=== PATIENT | female | born 1990 | race Caucasian/White ===

== ENCOUNTER 2024-05-02 13:02 | Outpatient (AMB) | payer BC, SELFPAY ==
[2024-05-02 13:11] VITALS: BP 123/74; PULSE 107; RESP 20; TEMP 36.2; O2SAT 97; BMI 33.3
--- NOTE | 2024-05-02 13:11 | OBCLNT_ITS ---
Vital Signs 05/02/24 13:11 Height 1.5 m Height Method Stated Weight 74.843 kg Weight Measurement Method Standing Scale BMI 33.3 BP 123/74 Blood Pressure Source Automatic Cuff Blood Pressure Location Left Upper Arm Position Left Lateral Respiration 20 Pulse 107 H Pulse Source Monitor Temp 97.1 F Temp Source Oral Pulse Oximetry (%) 97 Oxygen Delivery Method Room Air Allergies/Home Meds Allergies & Medications Allergies No Known Allergies Allergy (Verified 05/02/24 13:19) Medication Reconciliation acetaminophen 325 mg tablet (Tylenol) 325 mg PO QID PRN 05/02/24 [History Confirmed 05/02/24] aspirin 81 mg tablet,delayed release 81 mg PO QDAY 05/02/24 [History Confirmed 05/02/24] vits 75-iron 28 mg-folic acid 800 mcg-omega-3 oral combo pack (One A Day Women's DHA) pkg PO 05/02/24 [History Confirmed 05/02/24] Intake Visit Data Collection New Patient or Established: New Patient (never been to [facility]) Reason for Visit:: care Seen by Clinical Staff ONLY (RN/MA): No Transmission Repairer Required: No Do You Feel Safe at Home: Yes Authorities Contacted: N/A PCP or OBGYN visit in last 3 months: Yes Hx Now: Yes Are you currently on any form of Control: No Last menstrual period: 11/03/23 Pain Present Currently: No Pain Scale Used: Barbosa-Lopez/Numerical Pain scale:: 0 Smoking Status Smoking Status: Current some day smoker Cessation Counseling Provided: CYN was advised that quitting smoking is the single most important factor to protect the health of themselves and their family. Discussed the benefits of quitting smoking with patient. Encouraged patient to quit smoking and provided Cessation assistance materials and resources. Tobacco Use: Cigarette Years smoked: 20 Are you interested in Quitting?: No Would you like additional Smoking Cessation Counseling?: No Questionnaires Covid-19 Vaccine Questionnaire Has patient been vacinated for Covid-19 Have you been vacinated for Covid-19: No PHQ-9 PHQ-2 Over the last 2 weeks, how often have you been bothered by any of the following problems? 1. Little interest or pleasure in doing things: not at all 2. Feeling down, depressed, or hopeless: not at all Total score: 0 PHQ-9 3. Trouble falling or staying asleep, or sleeping too much: Not at all 4. Feeling tired or having little energy: Not at all 5. Poor appetite or overeating: Not at all 6. Feeling bad about yourself - or that you are a failure or have let yourself or your family down: Not at all 7. Trouble concentrating on things, such as reading the newspaper or watching television: Not at all 8. Moving or speaking so slowly that other people could have noticed? - Or the opposite - being so fidgety or restless that you have been moving around a lot more than usual: not at all 9. Thoughts that you would be better off or of hurting yourself in some way: Not at all Total score: 0 Source: Developed by Drs. Akin Mueller, Radha Pham, João Ventura and colleagues, with an educational karri from [employer]. 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 [employer] Tobacco History Smoking Status: Current some day smoker Packs per Day: 1.5 tobacco type: cigarettes Second Hand Smoke Exposure: Yes Alcohol History Alcohol Intake: Former Alcohol Intake Frequency: holidays/special occasions only Substance Use History Substance Use: none Domestic Abuse History Do You Feel Safe at Home: Yes Past Medical History Past Medical History Have you ever been diagnosed with any of the following: Cardiology Problems Cardiac Arrhythmia: No Heart Murmur: No Hypercholesterolemia: No Deep Vein Thrombosis: No Hypertension: No Respiratory Problems Asthma: No Sleep Apnea: No Wheezing: No Smoking: Yes Smoking Cessation Counseling: No Smoking Exposure: Yes Tobacco Use: Yes Stomache/Intestinal Problems Celiac Disease: No Gall Bladder Disease: No Colitis: No Irritable Bowel: No Hemorrhoids: No Gastroesophageal Reflux Disease: No Genital/Urinary Problems Kidney Stones: No Reproductive Problems Breast Cancer: No Endometriosis: No Fibroids: No Genital Herpes: No Gonorrhea: No Pelvic Inflammatory Disease: No Polycystic Ovarian Syndrome: No Previous Pregnancies: Yes (CS X 3 ETOP x 1) Syphilis: No Musculoskeletal Problems Arthritis: No Rheumatoid Arthritis: No Endocrine Problems Diabetes Mellitus Type 2: No Hyperthyroidism: No Hypothyroidism: No Systemic Lupus Erythematosus: No Blood Problems Anemia: No Psychologic Problems Recreational Drug Use: No Depression: No Anxiety: No Other Problems Hospitalization: Yes (Childbirth x 3) Autoimmune Disease: No Blood Transfusions: No Surgical History Angioplasty: No Appendectomy: No Bariatric Surgery: No Breast Surgery: No Cholecystectomy: No Additional Surgical History: LEEP, CS x3, ETOP, Possible cryo History of Present Illness HPI Narrative Pt is a 33 [id number] hx CS x 3 for OB transfer. Pt is 25-26 weeks and was seeing a CERTIFICATION OFFICER in [place] for PNC visits. She needs a colpo and LEEP post for an ASC_H pap in 01/2024 that has not been worked up yet. OB Initial Visit Menstrual History Menstrual reliability: definite Flow: normal Menstrual regularity: regular Monthly: Yes Age at menarche: 10 On control pills at conception: No Date of positive home test: 12/09/23 Associated symptoms (LMP): Denies amenorrhea, nausea, vomiting, fatigue, breast tenderness, urinary frequency, irritability, bloating or other OB History : 5 Para: 3 Hx # Pregnancies: 0 Hx Total # of Abortions (Spontaneous & Elective): 1 # of Living Children: 3 Delivery History 1st : Child's name: TORSTEN date: 06/03/10 sex: female Gestational age at delivery (weeks): 39 Delivery type: History of depression before or after : No 2nd : Child's name: BERTRAND date: 12/04/11 sex: female Gestational age at delivery (weeks): 39 Delivery type: History of depression before or after : No 3rd : Child's name: MAY date: 08/03/22 sex: female Gestational age at delivery (weeks): 25 Delivery type: History of depression before or after : No Infection History & Risk Evaluation History of STDs: HPV (ASC-H pap in 01/26 has not been worked up yet) HIV risk evaluation: low risk Hepatitis B risk evaluation: low risk Patient or partner has history of Genital Herpes: No Varicella/chicken pox status: immunized Genetic Screening & History Genetic Screening/Teratology Counseling - Includes patient, baby's father, or a nyone in either family with: 1. Patient's age 35 years or older as of estimated date of delivery: No 2. Thalassemia (German, Danish, Mediterranean, or Background); MCV less than 80: No 3. Neural Tube Defect (Meningomyelocele, Spina Bifida, or Anencephaly): No 4. Congenital Heart Defect: No 5. Down Syndrome: No 6. Kade-Sachs (Ashkenazi Yarsani, Cajun, [place]): No 7. Kisha Disease (Ashkenazi Yarsani): No 8. Familial Dysautonomia (Ashkenazi Yarsani): No 9. Sickle Cell Disease or Trait (): No 10. Hemophilia or other blood disorders: No 11. Muscular Dystrophy: No 12. Cystic Fibrosis: No 13. Dillon's Chorea: No 14. Mental Retardation/Autism: No 15. Other inherited genetic or chromosomal disorder: No 16. Maternal Metabolic Disorder (EG,TYPE 1 Diabetes, PKU): No 17. Patient or baby's father had a child with defects not listed above: No 18. Recurrent loss or a stillbirth: No 19. Medications (including supplements, vitamins, herbs or otc drugs)/illicit/recreational drugs/alcohol since last menstrual period: No 20. Any other: No Infection History 1. Live with someone with TB or exposed to TB: No 2. Rash or viral illness since last menstrual period: No 3. Hepatitis B,C: No Other (see comments) Source: [employer] OB Flowsheet OB Flowsheet Initial Weight: Not Recorded Date -?-?-?-?-?-?-?-?-?-?-?-?- EGA Weight Edema CTX Effacement BP Fundal ht Pres Dilation Effacement Station Visit Note Alb Glu FHR Mov 05/02/24 -?-?-?-?-?-?-?-?-?-?-?-?- 25w 6d 74.843 kg 123/74 150 active Review of Systems Review of Systems Narrative Review of Systems: Some nausea and fatigue Systems Reviewed: All systems reviewed, normal except as documented Constitutional Constitutional: Denies fatigue Gastrointestinal Gastrointestinal: Denies bloating, Denies nausea and Denies vomiting Genitourinary Genitourinary: Denies amenorrhea and Denies urinary frequency Psychiatric Psychiatric: Denies irritability Endocrine Endocrine: Denies fatigue Assessment & Plan Diagnosis / Problem List (1) Pap smear cannot exclude high grade squamous intraepithelial lesion (ASC-H): Status: Acute Plan: Needs Colpo/LEEP post Op week #6 (2) Previous section: Status: Acute Plan: Plan repeat at 39 weeks (3) : Status: Acute Qualifiers: Weeks of gestation: 26 weeks Qualified Code(s): Z3A.26 - 26 weeks gestation of (4) AMA (advanced maternal age) multigravida 35+: Status: Acute Qualifiers: Trimester: second trimester Qualified Code(s): O09.522 - Supervision of elderly multigravida, second trimester Plan: Normal NIPT (5) Multiparity: Status: Acute Plan: Desires BTL, needs papers signed Additional Plan Follow Up: 4 Weeks Office Procedures OB Clinic LOC & Office Proc's Nursing/Assessment Patient Status: Initial/New Patient OB Clinic Nursing Assessment: Medication Reconciliation, Update PMH in EMR and Vital Signs OB Clinic Coordination of Care: AMA, Complex Care and Chronic Disease 1-5, Consent,records obtained, informed consent, Education Simp Pt/Fam, Lab and Imaging orders, Results/Orders obtained and Staff clarify orders Special Needs: Heart tones New Patient Charge New Patient Point Assignment: [id number] New Patient Point Charge: CERTIFICATION OFFICER Level 4 ([id number]) Bedside Ultrasounds US Transabdominal <14 weeks at bedside: Yes
== END 2024-05-02 13:53 | disposition home or self-care (01) ==
LOC: HODSOBC 13:02
PROVIDERS: Supervising Provider Obstetrics & Gynecology; Visit Provider Obstetrics & Gynecology
DX: O09.522 Supervision of elderly multigravida, second trimester (principal); Z3A.00 Weeks of gestation of pregnancy not specified; R87.610 Atypical squamous cells of undetermined significance on cytologic smear of cervix (ASC-US); Z98.891 History of uterine scar from previous surgery
CPT/HCPCS: 76801; 99204; G0463

== ENCOUNTER 2024-05-28 13:03 | Outpatient (AMB) | payer BC, SELFPAY ==
[2024-05-28 13:17] VITALS: BP 115/75; PULSE 108; RESP 18; TEMP 36.6; O2SAT 96; BMI 34.0
--- NOTE | 2024-05-28 13:17 | OBCLNT_ITS ---
Vital Signs 05/28/24 13:17 Height 1.5 m Height Method Stated Weight 76.43 kg Weight Measurement Method Standing Scale BMI 34.0 BP 115/75 Blood Pressure Source Automatic Cuff Blood Pressure Location Left Upper Arm Position Sitting Respiration 18 Pulse 108 H Pulse Source Monitor Temp 97.9 F Temp Source Oral Pulse Oximetry (%) 96 Oxygen Delivery Method Room Air Allergies/Home Meds Allergies & Medications Allergies No Known Allergies Allergy (Verified 05/28/24 13:19) Medication Reconciliation aspirin 81 mg tablet,delayed release 81 mg PO QDAY 05/02/24 [History Confirmed 05/28/24] vits 75-iron 28 mg-folic acid 800 mcg-omega-3 oral combo pack (One A Day Women's DHA) pkg PO 05/02/24 [History Confirmed 05/02/24] fluconazole 200 mg tablet (Diflucan) 200 mg PO .weekly #7 tabs 05/05/24 [Rx Confirmed 05/28/24] Intake Visit Data Collection New Patient or Established: Established Patient (seen at [facility] within 3 years) Reason for Visit:: CARE Seen by Clinical Staff ONLY (RN/MA): No Senior Property Accountant Required: No Do You Feel Safe at Home: Yes Authorities Contacted: N/A PCP or OBGYN visit in last 3 months: Yes Date of Last PCP or OBGYN visit: 05/02/24 Hx Now: Yes Are you currently on any form of Control: No Last menstrual period: 11/03/23 Pain Present Currently: No Pain Scale Used: Barbosa-Lopez/Numerical Pain scale:: 0 Smoking Status Smoking Status: Current some day smoker Cessation Counseling Provided: CYN was advised that quitting smoking is the single most important factor to protect the health of themselves and their family. Discussed the benefits of quitting smoking with patient. Encouraged patient to quit smoking and provided Cessation assistance materials and resources. Tobacco Use: Cigarette Years smoked: 20 Are you interested in Quitting?: No Would you like additional Smoking Cessation Counseling?: No Questionnaires Covid-19 Vaccine Questionnaire Has patient been vacinated for Covid-19 Have you been vacinated for Covid-19: No PHQ-9 PHQ-2 Over the last 2 weeks, how often have you been bothered by any of the following problems? 1. Little interest or pleasure in doing things: not at all 2. Feeling down, depressed, or hopeless: not at all Total score: 0 PHQ-9 3. Trouble falling or staying asleep, or sleeping too much: Not at all 4. Feeling tired or having little energy: Not at all 5. Poor appetite or overeating: Not at all 6. Feeling bad about yourself - or that you are a failure or have let yourself or your family down: Not at all 7. Trouble concentrating on things, such as reading the newspaper or watching television: Not at all 8. Moving or speaking so slowly that other people could have noticed? - Or the opposite - being so fidgety or restless that you have been moving around a lot more than usual: not at all 9. Thoughts that you would be better off or of hurting yourself in some way: Not at all Total score: 0 Source: Developed by Drs. Akin Mueller, Radha Pham, João Ventura and colleagues, with an educational karri from [employer]. 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 [employer] Tobacco History Smoking Status: Current some day smoker Packs per Day: 1.5 tobacco type: cigarettes Second Hand Smoke Exposure: Yes Alcohol History Alcohol Intake: Former Alcohol Intake Frequency: holidays/special occasions only Substance Use History Substance Use: none Domestic Abuse History Do You Feel Safe at Home: Yes Past Medical History Past Medical History Have you ever been diagnosed with any of the following: Neurological Problems Cerebrovascular Accident (CVA): No Transient Ischemic Attacks (TIA): No Dementia: No Alzheimer's Disease: No Parkinson's Disease: No Brain Tumor: No Meningitis: No Seizures: No Epilepsy: No Guillain-Ar[place] Syndrome: No Cardiology Problems Myocardial Infarction: No Cardiac Arrhythmia: No Atrial Fibrillation: No Angina: No Heart Murmur: No Hypercholesterolemia: No Deep Vein Thrombosis: No Hypertension: No Respiratory Problems Chronic Obstructive Pulmonary Disease (COPD): No Asthma: No Sleep Apnea: No Respiratory Aspiration: No Dyspnea: No Orthopnea: No Hx Cough: No Cough: No Wheezing: No Chest Deformities: No Smoking: Yes Smoking Cessation Counseling: No Smoking Exposure: Yes Tobacco Use: Yes Clubbing: No Exposure to Respiratory Irritants: No Intubation: No Stomache/Intestinal Problems Liver Cancer: No Hepatitis: No Cirrhosis: No Pancreatic Cancer: No Pancreatitis: No Celiac Disease: No Gall Bladder Disease: No Gastrointestinal Bleed: No Esophageal Varices: No Valderrama's Esophagus: No Colitis: No Ulcerative Colitis: No Diverticulitis: No Diverticulosis: No Ulcer: No Colorectal Cancer: No Irritable Bowel: No Crohn's Disease: No Obstructive Bowel: No Hiatal Hernia: No Hemorrhoids: No Gastroesophageal Reflux Disease: No Genital/Urinary Problems Renal Disease: No Kidney Stones: No Reproductive Problems Breast Cancer: No Endometriosis: No Fibroids: No Genital Herpes: No Gonorrhea: No Pelvic Inflammatory Disease: No Polycystic Ovarian Syndrome: No Previous Pregnancies: Yes (CS X 3 ETOP x 1) Syphilis: No Musculoskeletal Problems Muscular Dystrophy: No Myasthenia Gravis: No Marfan's Syndrome: No Bone Cancer: No Arthritis: No Rheumatoid Arthritis: No Head,Eye,Nose,Throat Problems Cataracts: No Glaucoma: No Blind: No Retinal Detachment: No Macular Degeneration: No Chronic Ear Infections: No Deafness: No Eye Prosthesis: No Endocrine Problems Diabetes Mellitus Type 1: No Diabetes Mellitus Type 2: No Hypoglycemia: No Dayton's Syndrome: No Shree's Disease: No Hyperthyroidism: No Hypothyroidism: No Systemic Lupus Erythematosus: No Blood Problems Anemia: No Leukemia: No Hemophilia: No Thalassemia: No Sickle Cell Disease: No Clotting Problems: No Psychologic Problems Schizophrenia: No Recreational Drug Use: No Bipolar Disorder: No Depression: No Anxiety: No Behavior Problems: No Self-Mutilation: No Attention Deficit Disorder: No Attention Deficit Hyperactivity Disorder: No Depression: No Post Traumatic Stress Disorder: No Eating Disorder: No Other Problems Hospitalization: Yes (Childbirth x 3) Down Syndrome: No Autism: No Blood Transfusions: No Surgical History Angioplasty: No Appendectomy: No Bariatric Surgery: No Breast Surgery: No Cholecystectomy: No Visit ANI Calculator Estimated Delivery Date Method Current WG Current Estimate 08/09/24 LMP (Certain) 29w 4d Expected Delivery Route/Plan Repeat with tubal ligation scheduled 07/29/2024 between 38 and 9 weeks for history of a thin lower uterine segment with a window, scar tissue, history of gestational diabetes and AMA. Patient also lives an hour away from the hospital. This will also be #4. Specific Issue/Plans Needs colpo LEEP . Initial Weight: Not Recorded Date -?-?-?-?-?-?-?-?-?-?-?-?- EGA Weight Edema CTX Effacement BP Fundal ht Pres Dilation Effacement Station Visit Note Alb Glu FHR Mov 05/02/24 -?-?-?-?-?-?-?-?-?-?-?-?- 25w 6d 74.843 kg 123/74 150 active 05/28/24 -?-?-?-?-?-?-?-?-?-?-?-?- 29w 4d 76.43 kg 115/75 30 145 active Notes Visit Date: 05/28/24 Last Updated by: Nadege Little (OB Clinic)MD Patient reports good movement, no bleeding. She is working at [employer]. She does desire tubal ligation and signed tubal papers today. She reminds me she had a thin lower uterine segment last time with scar tissue present. Plan is to perform between 38 and 39 weeks. Will schedule 07/29/2024. Patient still needs a colpo and LEEP for an ASCUS H Pap. She is seeing the high risk physician in [place], Dr. Vaughn, and the baby only has 1 VSD now. She has a follow-up appointment with him in mid June. Visit Date: 05/02/24 Last Updated by: Nadege Little MD [facility] records reviewed. Pt with ASC-H pap in 01/26. Dr Chu aware. No colpo done. Unclear why. Pt needs a CS and wants a BTL. Needs a Colpo/probable LEEP post . Baby with [address] Plata in [place]. Passed GCT, NIPT WNL Assessment & Plan Diagnosis / Problem List (1) Multiparity: Status: Acute Plan: Patient desires tubal ligation consented today and has a copy of her consent (2) Pap smear cannot exclude high grade squamous intraepithelial lesion (ASC-H): Status: Acute Plan: Patient needs a colpo LEEP post (3) Previous section: Status: Acute Plan: Previous x 3 this will be #4. Schedule between 38 and 39 on 07/29/2024. EDC is 08/09/2024. (4) AMA (advanced maternal age) multigravida 35+: Status: Acute Qualifiers: Trimester: second trimester Qualified Code(s): O09.522 - Supervision of elderly multigravida, second trimester (5) : Status: Acute Qualifiers: Weeks of gestation: 30 weeks Qualified Code(s): Z3A.30 - 30 weeks gestation of Office Procedures OB Clinic LOC & Office Proc's Nursing/Assessment Patient Status: Established Patient OB Clinic Nursing Assessment: Medication Reconciliation, Update PMH in EMR and Vital Signs OB Clinic Coordination of Care: Complex Care and Chronic Disease 1-5, Consent,records obtained, informed consent, Education Simp Pt/Fam and Staff clarify orders Special Needs: Heart tones Established Patient Charge Established Patient Point Assignment: 115 Established Patient Point Charge: EP Level 3 (80-115)
== END 2024-05-28 13:43 | disposition home or self-care (01) ==
LOC: HODSOBC 13:03
PROVIDERS: Supervising Provider Obstetrics & Gynecology; Visit Provider Obstetrics & Gynecology
DX: O28.2 Abnormal cytological finding on antenatal screening of mother (principal); O34.211 Maternal care for low transverse scar from previous cesarean delivery; O09.523 Supervision of elderly multigravida, third trimester; Z64.1 Problems related to multiparity; Z3A.29 29 weeks gestation of pregnancy
CPT/HCPCS: 99213; G0463

== ENCOUNTER 2024-06-11 13:40 | Outpatient (AMB) | payer BC, SELFPAY ==
[2024-06-11 13:53] VITALS: BP 126/81; PULSE 105; RESP 18; TEMP 36.3; O2SAT 98; BMI 34.1
--- NOTE | 2024-06-11 13:53 | AMB.OBVISIT ---
Vital Signs 06/11/24 13:53 Height 1.5 m Height Method Stated Weight 76.771 kg Weight Measurement Method Standing Scale BMI 34.1 BP 126/81 Blood Pressure Source Automatic Cuff Blood Pressure Location Left Upper Arm Position Sitting Respiration 18 Pulse 105 H Pulse Source Monitor Temp 97.3 F Temp Source Oral Pulse Oximetry (%) 98 Oxygen Delivery Method Room Air Allergies/Home Meds Allergies & Medications Allergies No Known Allergies Allergy (Verified 06/11/24 13:55) Medication Reconciliation aspirin 81 mg tablet,delayed release 81 mg PO QDAY 05/02/24 [History Confirmed 06/11/24] vits 75-iron 28 mg-folic acid 800 mcg-omega-3 oral combo pack (One A Day Women's DHA) pkg PO 05/02/24 [History Confirmed 06/11/24] fluconazole 200 mg tablet (Diflucan) 200 mg PO .weekly #7 tabs 05/05/24 [Rx Confirmed 06/11/24] Intake Visit Data Collection New Patient or Established: Established Patient (seen at [facility] within 3 years) Reason for Visit:: CARE Seen by Clinical Staff ONLY (RN/MA): No Yarn Comber Required: No Do You Feel Safe at Home: Yes Authorities Contacted: N/A PCP or OBGYN visit in last 3 months: Yes Hx Now: Yes Are you currently on any form of Control: No Pain Present Currently: No Pain Scale Used: Barbosa-Lopez/Numerical Pain scale:: 0 Smoking Status Smoking Status: Current some day smoker Cessation Counseling Provided: CYN was advised that quitting smoking is the single most important factor to protect the health of themselves and their family. Discussed the benefits of quitting smoking with patient. Encouraged patient to quit smoking and provided Cessation assistance materials and resources. Tobacco Use: Cigarette Years smoked: 10 Are you interested in Quitting?: No Questionnaires Covid-19 Vaccine Questionnaire Has patient been vacinated for Covid-19 Have you been vacinated for Covid-19: No PHQ-9 PHQ-2 Over the last 2 weeks, how often have you been bothered by any of the following problems? 1. Little interest or pleasure in doing things: not at all 2. Feeling down, depressed, or hopeless: not at all Total score: 0 PHQ-9 3. Trouble falling or staying asleep, or sleeping too much: Not at all 4. Feeling tired or having little energy: Not at all 5. Poor appetite or overeating: Not at all 6. Feeling bad about yourself - or that you are a failure or have let yourself or your family down: Not at all 7. Trouble concentrating on things, such as reading the newspaper or watching television: Not at all 8. Moving or speaking so slowly that other people could have noticed? - Or the opposite - being so fidgety or restless that you have been moving around a lot more than usual: not at all 9. Thoughts that you would be better off or of hurting yourself in some way: Not at all Total score: 0 Source: Developed by Drs. Akin Mueller, Radha Pham, João Ventura and colleagues, with an educational karri from [employer]. 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 [employer] Tobacco History Smoking Status: Current some day smoker Packs per Day: 1.5 tobacco type: cigarettes Second Hand Smoke Exposure: Yes Alcohol History Alcohol Intake: Former Alcohol Intake Frequency: holidays/special occasions only Substance Use History Substance Use: none Domestic Abuse History Do You Feel Safe at Home: Yes Past Medical History Past Medical History Have you ever been diagnosed with any of the following: Neurological Problems Cerebrovascular Accident (CVA): No Transient Ischemic Attacks (TIA): No Dementia: No Alzheimer's Disease: No Parkinson's Disease: No Brain Tumor: No Meningitis: No Seizures: No Epilepsy: No Guillain-Hickory Syndrome: No Cardiology Problems Myocardial Infarction: No Cardiac Arrhythmia: No Atrial Fibrillation: No Angina: No Heart Murmur: No Hypercholesterolemia: No Deep Vein Thrombosis: No Hypertension: No Respiratory Problems Chronic Obstructive Pulmonary Disease (COPD): No Asthma: No Sleep Apnea: No Respiratory Aspiration: No Dyspnea: No Orthopnea: No Hx Cough: No Cough: No Wheezing: No Chest Deformities: No Smoking: Yes Smoking Cessation Counseling: No Smoking Exposure: Yes Tobacco Use: Yes Clubbing: No Exposure to Respiratory Irritants: No Intubation: No Stomache/Intestinal Problems Liver Cancer: No Hepatitis: No Cirrhosis: No Pancreatic Cancer: No Pancreatitis: No Celiac Disease: No Gall Bladder Disease: No Gastrointestinal Bleed: No Esophageal Varices: No Valderrama's Esophagus: No Colitis: No Ulcerative Colitis: No Diverticulitis: No Diverticulosis: No Ulcer: No Colorectal Cancer: No Irritable Bowel: No Crohn's Disease: No Obstructive Bowel: No Hiatal Hernia: No Hemorrhoids: No Gastroesophageal Reflux Disease: No Genital/Urinary Problems Renal Disease: No Kidney Stones: No Reproductive Problems Breast Cancer: No Endometriosis: No Fibroids: No Genital Herpes: No Gonorrhea: No Pelvic Inflammatory Disease: No Polycystic Ovarian Syndrome: No Previous Pregnancies: Yes (CS X 3 ETOP x 1) Syphilis: No Musculoskeletal Problems Muscular Dystrophy: No Myasthenia Gravis: No Marfan's Syndrome: No Bone Cancer: No Arthritis: No Rheumatoid Arthritis: No Head,Eye,Nose,Throat Problems Cataracts: No Glaucoma: No Blind: No Retinal Detachment: No Macular Degeneration: No Chronic Ear Infections: No Deafness: No Eye Prosthesis: No Endocrine Problems Diabetes Mellitus Type 1: No Diabetes Mellitus Type 2: No Hypoglycemia: No Adelita's Syndrome: No Wilkes's Disease: No Hyperthyroidism: No Hypothyroidism: No Systemic Lupus Erythematosus: No Blood Problems Anemia: No Leukemia: No Hemophilia: No Thalassemia: No Sickle Cell Disease: No Clotting Problems: No Psychologic Problems Schizophrenia: No Recreational Drug Use: No Bipolar Disorder: No Depression: No Anxiety: No Behavior Problems: No Self-Mutilation: No Attention Deficit Disorder: No Attention Deficit Hyperactivity Disorder: No Depression: No Post Traumatic Stress Disorder: No Eating Disorder: No Other Problems Hospitalization: Yes (Childbirth x 3) Down Syndrome: No Autism: No Blood Transfusions: No Surgical History Angioplasty: No Appendectomy: No Bariatric Surgery: No Breast Surgery: No Cholecystectomy: No Visit OB Visit Log OB Flowsheet Initial Weight: Not Recorded Date <del>?</del> EGA Weight Edema CTX Effacement BP Fundal ht Pres Dilation Effacement Station Visit Note Alb Glu FHR Mov 05/02/24 <del>?</del> 25w 6d 74.843 kg 123/74 150 active 05/28/24 <del>?</del> 29w 4d 76.43 kg 115/75 30 145 active 06/11/24 <del>?</del> 31w 4d 76.771 kg occasional 126/81 34 145 active ANI Calculator Estimated Delivery Date Method Current WG Current Estimate 08/09/24 LMP (Certain) 31w 4d Expected Delivery Route/Plan Repeat with tubal ligation scheduled 07/29/2024 between 38 and 9 weeks for history of a thin lower uterine segment with a window, scar tissue, history of gestational diabetes and AMA. Patient also lives an hour away from the hospital. This will also be #4. Specific Issue/Plans Needs colpo LEEP . Notes Visit Date: 06/11/24 Last Updated by: Nadege Little (OB Clinic)MD Patient reports good movement. Some irregular contractions. She works at the [employer] and can sit at some times. She is seeing the maternal- medicine provider next week for her last ultrasound. The baby had 3 VDs now down to one now. Scheduled repeat CS with BTL for 07/29/24 Visit Date: 05/28/24 Last Updated by: Nadege Little (OB Clinic)MD Patient reports good movement, no bleeding. She is working at [employer]. She does desire tubal ligation and signed tubal papers today. She reminds me she had a thin lower uterine segment last time with scar tissue present. Plan is to perform between 38 and 39 weeks. Will schedule 07/29/2024. Patient still needs a colpo and LEEP for an ASCUS H Pap. She is seeing the high risk physician in [place], Dr. Vaughn, and the baby only has 1 VSD now. She has a follow-up appointment with him in mid June. Visit Date: 05/02/24 Last Updated by: Nadege Little MD [facility] records reviewed. Pt with ASC-H pap in 01/26. Dr Chu aware. No colpo done. Unclear why. Pt needs a CS and wants a BTL. Needs a Colpo/probable LEEP post . Baby with [address] Plata in [place]. Passed GCT, NIPT WNL Assessment & Plan Diagnosis / Problem List (1) Pap smear cannot exclude high grade squamous intraepithelial lesion (ASC-H): Status: Acute Assessment and Plan: Colpo and LEEP (2) Previous section: Status: Acute Assessment and Plan: Schedule repeat at 38-3/7 weeks with tubal ligation (3) : Status: Acute Qualifiers: Weeks of gestation: 32 weeks Qualified Code(s): Z3A.32 - 32 weeks gestation of (4) AMA (advanced maternal age) multigravida 35+: Status: Acute Qualifiers: Trimester: third trimester Qualified Code(s): O09.523 - Supervision of elderly multigravida, third trimester (5) Multiparity: Status: Acute Assessment and Plan: Patient signed tubal ligation papers and has a copy. Additional Plan Follow Up: 2 Weeks Office Procedures OB Clinic LOC & Office Proc's Nursing/Assessment Patient Status: Established Patient OB Clinic Nursing Assessment: Medication Reconciliation, Update PMH in EMR and Vital Signs OB Clinic Coordination of Care: AMA, Complex Care and Chronic Disease 1-5, Consent,records obtained, informed consent, Education Simp Pt/Fam and Staff clarify orders Established Patient Charge Established Patient Point Assignment: 105 Established Patient Point Charge: EP Level 3 (80-115)
== END 2024-06-11 14:14 | disposition home or self-care (01) ==
LOC: HODSOBC 13:40
PROVIDERS: Supervising Provider Obstetrics & Gynecology; Visit Provider Obstetrics & Gynecology
DX: O09.523 Supervision of elderly multigravida, third trimester (principal); Z3A.31 31 weeks gestation of pregnancy; O09.293 Supervision of pregnancy with other poor reproductive or obstetric history, third trimester; O34.219 Maternal care for unspecified type scar from previous cesarean delivery; Z87.59 Personal history of other complications of pregnancy, childbirth and the puerperium; O99.333 Smoking (tobacco) complicating pregnancy, third trimester; F17.210 Nicotine dependence, cigarettes, uncomplicated; Z71.6 Tobacco abuse counseling
CPT/HCPCS: 99213; G0463

== ENCOUNTER 2024-06-25 13:33 | Outpatient (AMB) | payer BC, SELFPAY ==
[2024-06-25 14:00] VITALS: BP 115/76; PULSE 101; RESP 20; TEMP 36.8; O2SAT 97; BMI 34.7
--- NOTE | 2024-06-25 14:00 | OBCLNT_ITS ---
Vital Signs 06/25/24 14:00 Height 1.5 m Height Method Stated Weight 78.018 kg Weight Measurement Method Standing Scale BMI 34.7 BP 115/76 Blood Pressure Source Automatic Cuff Blood Pressure Location Right Upper Arm Position Sitting Respiration 20 Pulse 101 H Pulse Source Monitor Temp 98.2 F Temp Source Temporal Artery Scan Pulse Oximetry (%) 97 Oxygen Delivery Method Room Air Allergies/Home Meds Allergies & Medications Allergies No Known Allergies Allergy (Verified 06/25/24 14:01) Medication Reconciliation aspirin 81 mg tablet,delayed release 81 mg PO QDAY 05/02/24 [History Confirmed 06/25/24] vits 75-iron 28 mg-folic acid 800 mcg-omega-3 oral combo pack (One A Day Women's DHA) pkg PO 05/02/24 [History Confirmed 06/25/24] fluconazole 200 mg tablet (Diflucan) 200 mg PO .weekly #7 tabs 05/05/24 [Rx Confirmed 06/25/24] Intake Visit Data Collection New Patient or Established: Established Patient (seen at [facility] within 3 years) Reason for Visit:: Return OB visit, 33 weeks Soap Drier Operator Required: No Do You Feel Safe at Home: Yes Authorities Contacted: N/A PCP or OBGYN visit in last 3 months: Yes Pain Present Currently: No Smoking Status Smoking Status: Current some day smoker Cessation Counseling Provided: CYN was advised that quitting smoking is the single most important factor to protect the health of themselves and their family. Discussed the benefits of quitting smoking with patient. Encouraged patient to quit smoking and provided Cessation assistance materials and resources. Tobacco Use: Cigarette Years smoked: 20 Are you interested in Quitting?: No Questionnaires Covid-19 Vaccine Questionnaire Has patient been vacinated for Covid-19 Have you been vacinated for Covid-19: Yes PHQ-9 PHQ-2 Over the last 2 weeks, how often have you been bothered by any of the following problems? 1. Little interest or pleasure in doing things: not at all 2. Feeling down, depressed, or hopeless: not at all Total score: 0 PHQ-9 8. Moving or speaking so slowly that other people could have noticed? - Or the opposite - being so fidgety or restless that you have been moving around a lot more than usual: not at all Source: Developed by Drs. Akin Mueller, Radha Pham, João Ventura and colleagues, with an educational karri from [employer]. 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[employer] Tobacco History Smoking Status: Current some day smoker Packs per Day: 1.5 tobacco type: cigarettes Second Hand Smoke Exposure: Yes Alcohol History Alcohol Intake: Former Alcohol Intake Frequency: holidays/special occasions only Substance Use History Substance Use: none Domestic Abuse History Do You Feel Safe at Home: Yes Past Medical History Past Medical History Have you ever been diagnosed with any of the following: Cardiology Problems Heart Murmur: No Hypercholesterolemia: No Deep Vein Thrombosis: No Hypertension: No Respiratory Problems Asthma: No Sleep Apnea: No Smoking: Yes Smoking Cessation Counseling: No Smoking Exposure: Yes Tobacco Use: Yes Stomache/Intestinal Problems Gall Bladder Disease: No Genital/Urinary Problems Renal Disease: No Reproductive Problems Breast Cancer: No Endometriosis: No Fibroids: No Genital Herpes: No Gonorrhea: No Pelvic Inflammatory Disease: No Polycystic Ovarian Syndrome: No Previous Pregnancies: Yes (CS X 3 ETOP x 1) Syphilis: No Musculoskeletal Problems Arthritis: No Rheumatoid Arthritis: No Endocrine Problems Diabetes Mellitus Type 2: No Hyperthyroidism: No Hypothyroidism: No Systemic Lupus Erythematosus: No Blood Problems Anemia: No Psychologic Problems Depression: No Other Problems Hospitalization: Yes (Childbirth x 3) Blood Transfusions: No Surgical History Appendectomy: No Bariatric Surgery: No Breast Surgery: No Cholecystectomy: No Visit OB Visit Log OB Flowsheet Initial Weight: Not Recorded Date -?-?-?-?-?-?-?-?-?-?-?-?- EGA Weight Edema CTX Effacement BP Fundal ht Pres Dilation Effacement Station Visit Note Alb Glu FHR Mov 05/02/24 -?-?-?-?-?-?-?-?-?-?-?-?- 25w 6d 74.843 kg 123/74 150 active 05/28/24 -?-?-?-?-?-?-?-?-?-?-?--?- 29w 4d 76.43 kg 115/75 30 145 active 06/11/24 -?-?-?-?-?-?-?-?-?-?-?-?- 31w 4d 76.771 kg occasional 126/81 34 145 active 06/25/24 -?-?-?-?-?-?-?-?-?-?-?-?- 33w 4d 78.018 kg frequent 115/76 35 Patient having a lot of contractions at work. On her feet a lot. Works at the [employer]. She is almost 34 weeks with a history of x 3. We will take her off work on disability at this time. 150 active ANI Calculator Estimated Delivery Date Method Current WG Current Estimate 08/09/24 LMP (Certain) 33w 4d Comments: Labs from [facility] reviewed. Scanned in record. No hardcopy of the labs available. Per nurse practitioner at [facility] notes patient is O+ /antibody screen negative/ rubella nonimmune /RPR nonreactive/ HIV/ GC chlamydia/ hepatitis B surface antigen all negative/ Neutra screen NIPT 46XX. Genetic screen negative. Expected Delivery Route/Plan Repeat with tubal ligation scheduled 07/29/2024 between 38 and 9 weeks for history of a thin lower uterine segment with a window, scar tissue, history of gestational diabetes and AMA. Patient also lives an hour away from the hospital. This will also be #4. Specific Issue/Plans Needs colpo LEEP . Notes Visit Date: 06/25/24 Last Updated by: Nadege Little (OB Clinic)MD Patient has a lot of contractions at work. She is 33-4/7 weeks with an EDC of 08/07/2024. She has a repeat scheduled 07/29/2024 for a thin lower uterine segment and a history of x 3. Visit Date: 06/11/24 Last Updated by: Nadege Little (OB Clinic)MD Patient reports good movement. Some irregular contractions. She works at the [employer] and can sit at some times. She is seeing the maternal- medicine provider next week for her last ultrasound. The baby had 3 VDs now down to one now. Scheduled repeat CS with BTL for 07/29/24 Visit Date: 05/28/24 Last Updated by: Nadege Little (OB Clinic)MD Patient reports good movement, no bleeding. She is working at [employer]. She does desire tubal ligation and signed tubal papers today. She reminds me she had a thin lower uterine segment last time with scar tissue present. Plan is to perform between 38 and 39 weeks. Will schedule 07/29/2024. Patient still needs a colpo and LEEP for an ASCUS H Pap. She is seeing the high risk physician in [place], Dr. Vaughn, and the baby only has 1 VSD now. She has a follow-up appointment with him in mid June. Visit Date: 05/02/24 Last Updated by: Nadege Little MD ALL [facility] records reviewed. Pt with ASC-H pap in 01/26. Dr Chu aware. No colpo done. Unclear why. Pt needs a CS and wants a BTL. Needs a Colpo/probable LEEP post . Baby with [address] Plata in [place]. Passed GCT, NIPT WNL Office Procedures OB Clinic LOC & Office Proc's Nursing/Assessment Patient Status: Established Patient OB Clinic Nursing Assessment: Medication Reconciliation, Update PMH in EMR and Vital Signs OB Clinic Coordination of Care: Complex Care and Chronic Disease 1-5, Education Complex Pt/Fam and Staff clarify orders Established Patient Charge Established Patient Point Assignment: 85 Established Patient Point Charge: EP Level 3 (80-115)
== END 2024-06-25 14:43 | disposition home or self-care (01) ==
LOC: HODSOBC 13:33
PROVIDERS: Supervising Provider Obstetrics & Gynecology; Visit Provider Obstetrics & Gynecology
DX: O09.523 Supervision of elderly multigravida, third trimester (principal); O09.293 Supervision of pregnancy with other poor reproductive or obstetric history, third trimester; Z3A.33 33 weeks gestation of pregnancy; O34.219 Maternal care for unspecified type scar from previous cesarean delivery; O09.893 Supervision of other high risk pregnancies, third trimester; O99.333 Smoking (tobacco) complicating pregnancy, third trimester; F17.210 Nicotine dependence, cigarettes, uncomplicated; Z71.6 Tobacco abuse counseling; Z86.32 Personal history of gestational diabetes
CPT/HCPCS: 99213; G0463

== ENCOUNTER 2024-07-11 13:36 | Outpatient (AMB) | payer BC, SELFPAY ==
[2024-07-11 13:49] VITALS: BP 123/80; PULSE 141; RESP 18; TEMP 36; O2SAT 96; BMI 35.0
--- NOTE | 2024-07-11 13:49 | OBCLNT_ITS ---
Vital Signs 07/11/24 13:49 Height 1.5 m Height Method Stated Weight 78.925 kg Weight Measurement Method Standing Scale BMI 35.0 BP 123/80 Blood Pressure Source Automatic Cuff Blood Pressure Location Left Upper Arm Position Sitting Respiration 18 Pulse 141 H Pulse Source Monitor Temp 96.8 F Temp Source Oral Pulse Oximetry (%) 96 Oxygen Delivery Method Room Air Allergies/Home Meds Allergies & Medications Allergies No Known Allergies Allergy (Verified 07/11/24 13:51) Medication Reconciliation aspirin 81 mg tablet,delayed release 81 mg PO QDAY 05/02/24 [History Confirmed 07/11/24] vits 75-iron 28 mg-folic acid 800 mcg-omega-3 oral combo pack (One A Day Women's DHA) pkg PO 05/02/24 [History Confirmed 07/11/24] fluconazole 200 mg tablet (Diflucan) 200 mg PO .weekly #7 tabs 05/05/24 [Rx Confirmed 07/11/24] pantoprazole 40 mg tablet,delayed release (Protonix) 40 mg PO BID 14 days #28 tabs 07/11/24 [Rx] Intake Visit Data Collection New Patient or Established: Established Patient (seen at [facility] within 3 years) Reason for Visit:: Return OB visit Seen by Clinical Staff ONLY (RN/MA): No Director Of Agronomy Required: No Do You Feel Safe at Home: Yes Authorities Contacted: N/A PCP or OBGYN visit in last 3 months: Yes Date of Last PCP or OBGYN visit: 06/25/24 Hx Now: Yes Are you currently on any form of Control: No Pain Present Currently: No Pain Scale Used: Barbosa-Lopez/Numerical Pain scale:: 0 Smoking Status Smoking Status: Current some day smoker Cessation Counseling Provided: CYN was advised that quitting smoking is the single most important factor to protect the health of themselves and their family. Discussed the benefits of quitting smoking with patient. Encouraged patient to quit smoking and provided Cessation assistance materials and resources. Tobacco Use: Cigarette Years smoked: 20 Are you interested in Quitting?: No Questionnaires Covid-19 Vaccine Questionnaire Has patient been vacinated for Covid-19 Have you been vacinated for Covid-19: Yes PHQ-9 PHQ-2 Over the last 2 weeks, how often have you been bothered by any of the following problems? 1. Little interest or pleasure in doing things: not at all 2. Feeling down, depressed, or hopeless: not at all Total score: 0 PHQ-9 3. Trouble falling or staying asleep, or sleeping too much: Not at all 4. Feeling tired or having little energy: Not at all 5. Poor appetite or overeating: Not at all 6. Feeling bad about yourself - or that you are a failure or have let yourself or your family down: Not at all 7. Trouble concentrating on things, such as reading the newspaper or watching television: Not at all 8. Moving or speaking so slowly that other people could have noticed? - Or the opposite - being so fidgety or restless that you have been moving around a lot more than usual: not at all 9. Thoughts that you would be better off or of hurting yourself in some way: Not at all Total score: 0 If you checked off any problems, how difficult have these problems made it for you to do your work, take care of things at home, or get along with other people?: not difficult at all Source: Developed by Drs. Akin Mueller, Radha Pham, João Ventura and colleagues, with an educational karri from [employer]. 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 Past Medical History: No Hx Hypothyroidism, No Hx Hyperthyroidism, No Hx Breast Cancer, No Hx Hypertension, No Hx Anemia, No Hx Renal Disease, No Hx Deep Vein Thrombosis, No Hx Diabetes Mellitus Type 1, No Hx Diabetes Mellitus Type 2 and No Hx Polycystic Ovarian Syndrome Care OB Visit Log OB Flowsheet Initial Weight: Not Recorded Date -?-?-?-?-?--?-?-?-?-?-?-?- EGA Weight Edema CTX Effacement BP Fundal ht Pres Dilation Effacement Station Visit Note Alb Glu FHR Mov 05/02/24 -?-?-?-?-?-?-?-?-?-?-?-?- 25w 6d 74.843 kg 123/74 150 active 05/28/24 -?-?-?-?-?-?-?-?-?-?-?-?- 29w 4d 76.43 kg 115/75 30 145 active 06/11/24 -?-?-?-?-?-?-?-?-?-?-?-?- 31w 4d 76.771 kg occasional 126/81 34 145 active 06/25/24 -?-?-?-?-?-?-?-?-?-?-?-?- 33w 4d 78.018 kg frequent 115/76 35 Patient having a lot of contractions at work. On her feet a lot. Works at the [employer]. She is almost 34 weeks with a history of x 3. We will take her off work on disability at this time. 150 active 07/11/24 -?-?-?-?-?-?-?-?-?-?-?-?- 35w 6d 78.925 kg frequent 123/80 36 Patient still having contractions. Itching all over. Ordered cholestasis labs. If they are positive we will move her up. Patient sleeps sitting up Tums milk of magnesia and Mylanta not effective. History of gastric ulcer. Protonix prescribed. 145 active ANI Calculator Estimated Delivery Date Method Current WG Current Estimate 08/09/24 LMP (Certain) 36w 3d Comments: Records from [facility] reviewed from 05/19/2024. 44 pages of records. All that is available is patient's blood type is O+ antibody negative Pap smear is high-grade BEBETO and she needs a colpo and LEEP GC negative Chlamydia negative structural survey at 20 weeks normal NIPT 46XX. No other lab work is available in all those records to review. Expected Delivery Route/Plan Repeat with tubal ligation scheduled 07/29/2024 between 38 and 9 weeks for history of a thin lower uterine segment with a window, scar tissue, history of gestational diabetes and AMA. Patient also lives an hour away from the hospital. This will also be #4. Specific Issue/Plans Needs colpo LEEP . Notes Visit Date: 07/11/24 Last Updated by: Nadege iLttle (OB Clinic)MD Patient has a lot of itching, cholestasis labs ordered. NST next week. May need to move ultrasound up to 37 weeks if she is positive for cholestasis. Visit Date: 06/25/24 Last Updated by: Naedge Little (OB Clinic)MD Patient has a lot of contractions at work. She is 33-4/7 weeks with an EDC of 08/07/2024. She has a repeat scheduled 07/29/2024 for a thin lower uterine segment and a history of x 3. Visit Date: 06/11/24 Last Updated by: Nadege Little (OB Clinic)MD Patient reports good movement. Some irregular contractions. She works at the [employer] and can sit at some times. She is seeing the maternal- medicine provider next week for her last ultrasound. The baby had 3 VDs now down to one now. Scheduled repeat CS with BTL for 07/29/24 Visit Date: 05/28/24 Last Updated by: Nadege Little (OB Clinic)MD Patient reports good movement, no bleeding. She is working at [employer]. She does desire tubal ligation and signed tubal papers today. She reminds me she had a thin lower uterine segment last time with scar tissue present. Plan is to perform between 38 and 39 weeks. Will schedule 07/29/2024. Patient still needs a colpo and LEEP for an ASCUS H Pap. She is seeing the high risk physician in [place], Dr. Vaughn, and the baby only has 1 VSD now. She has a follow-up appointment with him in mid June. Visit Date: 05/02/24 Last Updated by: Nadege Little MD ALL [facility] records reviewed. Pt with ASC-H pap in 01/26. Dr Chu aware. No colpo done. Unclear why. Pt needs a CS and wants a BTL. Needs a Colpo/probable LEEP post . Baby with [address] Plata in [place]. Passed GCT, NIPT WNL Office Procedures OB Clinic LOC & Office Proc's Nursing/Assessment Patient Status: Established Patient OB Clinic Nursing Assessment: BP Monitoring, Medication Reconciliation, Update PMH in EMR and Vital Signs OB Clinic Coordination of Care: Consent,records obtained, informed consent, Education Simp Pt/Fam, Lab and Imaging orders and Staff clarify orders Special Needs: Heart tones Established Patient Charge Established Patient Point Assignment: 120 Established Patient Point Charge: EP Level 4 (120-155)
[2024-07-11 16:44] LABS: Bilirubin,Urine Clinitek Negative (Negative); Blood,Urine Clinitek Trace-intact (Negative); Glucose, Urine Clinitek Negative (Negative); Ketones,Urine Clinitek Negative (Negative); Leukocyte Esterase,Urine Clin Negative (Negative); Nitrite,Urine Clinitek Negative (Negative); Protein,Urine Clinitek Negative (Neg - Trace); Specific Gravity,Urine Clin 1.025 (1.001-1.030); Urobilinogen,Urine Clinitek 0.2 mg/dL (0.0-1.0)
== END 2024-07-11 14:43 | disposition home or self-care (01) ==
LOC: HODSOBC 13:36
PROVIDERS: Supervising Provider Obstetrics & Gynecology; Visit Provider Obstetrics & Gynecology
DX: O09.523 Supervision of elderly multigravida, third trimester (principal); O09.293 Supervision of pregnancy with other poor reproductive or obstetric history, third trimester; O34.219 Maternal care for unspecified type scar from previous cesarean delivery; Z3A.35 35 weeks gestation of pregnancy; O09.893 Supervision of other high risk pregnancies, third trimester; O35.BXX0 Maternal care for other (suspected) fetal abnormality and damage, fetal cardiac anomalies, not applicable or unspecified; O26.893 Other specified pregnancy related conditions, third trimester; L29.9 Pruritus, unspecified; O99.333 Smoking (tobacco) complicating pregnancy, third trimester; F17.210 Nicotine dependence, cigarettes, uncomplicated; Z71.6 Tobacco abuse counseling; Z86.32 Personal history of gestational diabetes; Z87.11 Personal history of peptic ulcer disease
CPT/HCPCS: 81001; 99214; G0463

== ENCOUNTER → 2024-07-11 | Outpatient (CLI) | payer BC, SELFPAY ==
[2024-07-17 15:35] LABS: Chenodeoxycholic Acid* 0.7 umol/L (< OR = 3.9); Cholic Acid* <0.5 umol/L (< OR = 2.8); Deoxycholic Acid* <0.5 umol/L (< OR = 2.3)
[2024-07-21 07:27] LABS: Total Bile Acids <1.5 umol/L (< OR = 8.3)
== END | disposition home or self-care (01) ==
PROVIDERS: Referring Provider Obstetrics & Gynecology; Visit Provider Obstetrics & Gynecology
DX: O26.643 Intrahepatic cholestasis of pregnancy, third trimester (principal)
CPT/HCPCS: 36415; 83789

== ENCOUNTER 2024-07-16 13:08 | Outpatient (AMB) | payer BC, SELFPAY ==
--- NOTE | 2024-07-16 13:17 | AMB.OBVISIT ---
Vital Signs 07/16/24 13:18 Height 1.5 m Height Method Stated Weight 78.982 kg Weight Measurement Method Standing Scale BMI 35.1 BP 123/76 Blood Pressure Source Automatic Cuff Blood Pressure Location Left Upper Arm Position Sitting Respiration 18 Pulse 89 Pulse Source Monitor Temp 97.8 F Temp Source Temporal Artery Scan Pulse Oximetry (%) 98 Oxygen Delivery Method Room Air Allergies/Home Meds Allergies & Medications Allergies No Known Allergies Allergy (Verified 07/16/24 13:19) Medication Reconciliation aspirin 81 mg tablet,delayed release 81 mg PO QDAY 05/02/24 [History Confirmed 07/16/24] vits 75-iron 28 mg-folic acid 800 mcg-omega-3 oral combo pack (One A Day Women's DHA) pkg PO 05/02/24 [History Confirmed 07/16/24] fluconazole 200 mg tablet (Diflucan) 200 mg PO .weekly #7 tabs 05/05/24 [Rx Confirmed 07/16/24] pantoprazole 40 mg tablet,delayed release (Protonix) 40 mg PO BID 14 days #28 tabs 07/11/24 [Rx Confirmed 07/16/24] Intake Visit Data Collection New Patient or Established: Established Patient (seen at [facility] within 3 years) Reason for Visit:: obc Do You Feel Safe at Home: Yes Authorities Contacted: N/A PCP or OBGYN visit in last 3 months: Yes Pain Present Currently: No Smoking Status Smoking Status: Current some day smoker Cessation Counseling Provided: CYN was advised that quitting smoking is the single most important factor to protect the health of themselves and their family. Discussed the benefits of quitting smoking with patient. Encouraged patient to quit smoking and provided Cessation assistance materials and resources. Tobacco Use: Cigarette Years smoked: 10 Are you interested in Quitting?: No Questionnaires Covid-19 Vaccine Questionnaire Has patient been vacinated for Covid-19 Have you been vacinated for Covid-19: Yes PHQ-9 PHQ-2 Over the last 2 weeks, how often have you been bothered by any of the following problems? 1. Little interest or pleasure in doing things: not at all 2. Feeling down, depressed, or hopeless: not at all Total score: 0 PHQ-9 8. Moving or speaking so slowly that other people could have noticed? - Or the opposite - being so fidgety or restless that you have been moving around a lot more than usual: not at all Source: Developed by Drs. Akin Mueller, Radha Pham, João Ventura and colleagues, with an educational karri from [employer]. 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 Medical History Past Medical History: No Hx Hypothyroidism, No Hx Hyperthyroidism, No Hx Breast Cancer, No Hx Hypertension, No Hx Anemia, No Hx Renal Disease, No Hx Deep Vein Thrombosis, No Hx Diabetes Mellitus Type 1, No Hx Diabetes Mellitus Type 2 and No Hx Polycystic Ovarian Syndrome Care OB Visit Log OB Flowsheet Initial Weight: Not Recorded Date <del>?</del> EGA Weight Edema CTX Effacement BP Fundal ht Pres Dilation Effacement Station Visit Note Alb Glu FHR Mov 05/02/24 <del>?</del> 25w 6d 74.843 kg 123/74 150 active 05/28/24 <del>?</del> 29w 4d 76.43 kg 115/75 30 145 active 06/11/24 <del>?</del> 31w 4d 76.771 kg occasional 126/81 34 145 active 06/25/24 <del>?</del> 33w 4d 78.018 kg frequent 115/76 35 Patient having a lot of contractions at work. On her feet a lot. Works at the [employer]. She is almost 34 weeks with a history of x 3. We will take her off work on disability at this time. 150 active 07/11/24 <del>?</del> 35w 6d 78.925 kg frequent 123/80 36 Patient still having contractions. Itching all over. Ordered cholestasis labs. If they are positive we will move her up. Patient sleeps sitting up Tums milk of magnesia and Mylanta not effective. History of gastric ulcer. Protonix prescribed. 145 active 07/16/24 <del>?</del> 36w 4d 78.982 kg frequent 123/76 37 Still itchy Cholestasis labs pending. +FM, -VB or LOF 153 active ANI Calculator Estimated Delivery Date Method Current WG Current Estimate 08/09/24 LMP (Certain) 36w 5d Expected Delivery Route/Plan Repeat with tubal ligation scheduled 07/29/2024 between 38 and 9 weeks for history of a thin lower uterine segment with a window, scar tissue, history of gestational diabetes and AMA. Patient also lives an hour away from the hospital. This will also be #4. Specific Issue/Plans Needs colpo LEEP . Notes Visit Date: 07/16/24 Last Updated by: Nadege Little (OB Clinic)MD To OBT for NST. CS moved up to 0730 on 07/21/24 for repeat x 4, cholestasis, AMA. Desires BTL Visit Date: 07/11/24 Last Updated by: Nadege Little (OB Clinic)MD Patient has a lot of itching, cholestasis labs ordered. NST next week. May need to move ultrasound up to 37 weeks if she is positive for cholestasis. Visit Date: 06/25/24 Last Updated by: Nadege Little (OB Clinic)MD Patient has a lot of contractions at work. She is 33-4/7 weeks with an EDC of 08/07/2024. She has a repeat scheduled 07/29/2024 for a thin lower uterine segment and a history of x 3. Visit Date: 06/11/24 Last Updated by: Nadege Little (OB Clinic)MD Patient reports good movement. Some irregular contractions. She works at the [employer] and can sit at some times. She is seeing the maternal- medicine provider next week for her last ultrasound. The baby had 3 VDs now down to one now. Scheduled repeat CS with BTL for 07/29/24 Visit Date: 05/28/24 Last Updated by: Nadege Little (OB Clinic)MD Patient reports good movement, no bleeding. She is working at [employer]. She does desire tubal ligation and signed tubal papers today. She reminds me she had a thin lower uterine segment last time with scar tissue present. Plan is to perform between 38 and 39 weeks. Will schedule 07/29/2024. Patient still needs a colpo and LEEP for an ASCUS H Pap. She is seeing the high risk physician in [place], Dr. Vaughn, and the baby only has 1 VSD now. She has a follow-up appointment with him in mid June. Visit Date: 05/02/24 Last Updated by: Nadege Little MD ALL [facility] records reviewed. Pt with ASC-H pap in 01/26. Dr Chu aware. No colpo done. Unclear why. Pt needs a CS and wants a BTL. Needs a Colpo/probable LEEP post . Baby with [address] Plata in [place]. Passed GCT, NIPT WNL Office Procedures OB Clinic LOC & Office Proc's Nursing/Assessment Patient Status: Established Patient OB Clinic Nursing Assessment: BP Monitoring, Medication Reconciliation, Update PMH in EMR and Vital Signs OB Clinic Coordination of Care: Complex Care and Chronic Disease 1-5, Education Complex Pt/Fam, Consent,records obtained, informed consent and Staff clarify orders Special Needs: Heart tones Established Patient Charge Established Patient Point Assignment: 135 Established Patient Point Charge: EP Level 4 (120-155)
[2024-07-16 13:18] VITALS: BP 123/76; PULSE 89; RESP 18; TEMP 36.6; O2SAT 98; BMI 35.1
== END 2024-07-16 14:09 | disposition home or self-care (01) ==
LOC: HODSOBC 13:08
PROVIDERS: Supervising Provider Obstetrics & Gynecology; Visit Provider Obstetrics & Gynecology
DX: O09.523 Supervision of elderly multigravida, third trimester (principal); Z3A.36 36 weeks gestation of pregnancy; O09.293 Supervision of pregnancy with other poor reproductive or obstetric history, third trimester; O34.219 Maternal care for unspecified type scar from previous cesarean delivery; O26.893 Other specified pregnancy related conditions, third trimester; L29.9 Pruritus, unspecified; O99.333 Smoking (tobacco) complicating pregnancy, third trimester; F17.210 Nicotine dependence, cigarettes, uncomplicated; O09.893 Supervision of other high risk pregnancies, third trimester; Z86.32 Personal history of gestational diabetes; Z87.11 Personal history of peptic ulcer disease; Z71.6 Tobacco abuse counseling
CPT/HCPCS: 99214; G0463

== ENCOUNTER 2024-07-16 14:01 | Outpatient (CLI) | payer BC, SELFPAY ==
[2024-07-16 14:13] VITALS: BMI 33.7
[2024-07-16 14:20] VITALS: BP 107/74; PULSE 89; RESP 16; RESP 99; TEMP 37.3
[2024-07-16 14:21] VITALS: BP 107/74; PULSE 89
== END 2024-07-16 14:55 | disposition home or self-care (01) ==
LOC: S4S1 14:02 → S4SX 14:03
PROVIDERS: Referring Provider Obstetrics & Gynecology; Visit Provider Obstetrics & Gynecology
DX: Z34.83 Encounter for supervision of other normal pregnancy, third trimester (principal); Z36.9 Encounter for antenatal screening, unspecified; Z3A.36 36 weeks gestation of pregnancy
CPT/HCPCS: 59025

== ENCOUNTER 2024-07-21 05:00 | Inpatient (IN) | payer BC, SELFPAY ==
[2024-07-21] VITALS (12 sets, daily range): BP systolic 97–125; BP diastolic 54–80; PULSE 76–91; RESP 14–19; TEMP 36.8–36.9; O2SAT 96–100; BMI 34.7
[2024-07-21] MEDS: RINGERS LACTATED 1000 ML 1,000 ML 125 ML IV (06:35)
--- NOTE | 2024-07-21 06:59 | PD.LDHP ---
Documentation for date of: 07/21/24 OB Labor/Induct. HPI History of Present Illness Chief complaint: Patient presents for scheduled repeat with tubal ligation : 5 Term pregnancies: 3 pregnancies: 0 Living children: 3 History of Abortions: Spontaneous and Elective: 1 History of sections: Yes (X 3) History of : No Date of last menstrual period: 11/02/23 ANI: 08/07/24 Gestational Age (weeks): 37 Gestational Age (days): 5 Gestational age based on last menstrual period: 37 History of present illness: Patient is a 34-year-old -0-1-3 all care started in [facility] in [place] transferred to Dr Little at 25 weeks. She presents for scheduled elective repeat section #4 at 37-5/7 weeks. This is being done early for advanced maternal age and suspected cholestasis. Patient's cholestasis labs are still pending. They were drawn 10 days ago. Patient still reports itching. She denies contractions loss of fluids or bleeding. She has signed tubal ligation papers and has them with her. History of Present Dating criteria: LMP confirmed by 1st trimester US Adequate Care: Yes Ultrasounds: normal mid trimester US Abnormal ultrasound findings: Had Level 2 ultrasounds with MFM for VSDs. These have closed. Narrative: Patient is a smoker. History of x 3. Suspected cholestasis. Multiparity desires permanent sterilization. Labs Labs: Unknown: RPR, Hepatitis B, Rubella Titre, HIV, Chlamydia, Gonorrhea, Herpes Type 1, Herpes Type 2, Group Beta Strep and Covid-19 Narrative: All care started in [place]. We are unable to get a hold of her labs. We do have her records and all that is on there is a normal NIPT and a high-grade Pap. No labs were sent Past Medical History Surgical History SURGICAL: Positive Section (X 3) Meds Home Medications and Allergies Home Medications ?Medication ?Instructions ?Recorded ?Confirmed ?Type vits 75-iron 28 mg-folic pkg PO 05/02/24 07/16/24 History acid 800 mcg-omega-3 oral combo pack (One A Day Women's DHA) Allergies Allergy/AdvReac Type Severity Reaction Status Date / Time No Known Allergies Allergy Verified 07/21/24 06:38 OB Exam Physical Exam Narrative: Patient is alert and oriented x 3 in no apparent distress Routine Respiratory Exam Respiratory: Present CTA bilaterally Routine Cardiovascular Exam Cardiovascular: Present RRR Routine Abdominal Exam Abdominal: Present soft and surgical scars (Well-healed Pfannenstiel scar) Detailed Labor and Delivery Exam Membranes: intact monitor accelerations: 15x15 monitor decelerations: None intermediate frame tender variability: Moderate (11-25) Contraction frequency (min): Irregular Routine Extremities Exam Comments: No erythema, no significant edema OB Assessment & Plan Assessment and Plan (1) Cholestasis during in third trimester: Status: Acute (2) Multiparity: Status: Acute (3) Previous section: Status: Acute (4) AMA (advanced maternal age) multigravida 35+: Status: Acute (5) Supervision of high risk in third trimester: Status: Acute Additional Plan Additional Plan Comment: Order repeat #4 with bilateral salpingectomies. Consented, all questions answered. 2 units on hold. (4) AMA (advanced maternal age) multigravida 35+ Qualifiers: Trimester: third trimester Qualified Code(s): O09.523 - Supervision of elderly multigravida, third trimester
[2024-07-21] MEDS: ceFAZolin/D5W 2 GM IV 2 GM/100 ML BAG IV (07:20)
[2024-07-21] MEDS: METOCLOPRAMIDE INJ 5 MG/ML VIAL 2 ML 10 MG IVP (07:20)
[2024-07-21] MEDS: FAMOTIDINE INJ 10 MG/ML VIAL 2 ML 20 MG IV (07:21)
[2024-07-21 07:29] LABS: Basophils # (Auto) 0.1 Thou/mm3 (0.0-0.2); Basophils % (Auto) 0 % (0-2.5); Eosinophils # (Auto) 0.1 Thou/mm3 (0.0-0.5); Eosinophils % (Auto) 0 % (0-10); Hematocrit 32.8 % (36.0-46.0); Hemoglobin 11.1 g/dL (12.0-16.0); Immature Granulocytes % (Auto) 0 % (0-0); Immature Granulocytes Auto 0.05 Thou/mm3 (0.00-0.00); Lymphocytes # (Auto) 3.9 Thou/mm3 (1.0-4.8); Lymphocytes % (Auto) 25 % (10-50); Mean Corpuscular HGB Conc 33.8 g/dl (31.0-37.0); Mean Corpuscular Hemoglobin 30.1 pg (25.0-35.0); Mean Corpuscular Volume 89 fL (80-100); Monocytes # (Auto) 0.9 Thou/mm3 (0.0-0.8); Monocytes % (Auto) 6 % (0-12); Neutrophils # (Auto) 10.6 Thou/mm3 (1.8-7.7); Neutrophils % (Auto) 68 % (37-80); Nucleated Red Blood Cell % 0 /100 WBC (0); Platelet Count 348 Thou/mm3 (140-440); RDW Standard Deviation 42.5 fL (36.4-46.3); Red Blood Count 3.69 Miln/mm3 (4.00-5.20); White Blood Count 15.5 Thou/mm3 (3.6-11.0)
[2024-07-21 07:37] LABS: Amphetamine/Metham Scrn,Ur OB Negative (Negative); Benzoylecgonine Screen, Ur OB Negative (Negative); Opiate Screen,Urine OB Negative (Negative); THC Screen,Urine OB Negative (Negative)
[2024-07-21 08:00] LABS: Rubella, IgG Antibody Reactive (Immune)
[2024-07-21 09:00] LABS: Syphilis Nonreactive (Nonreactive)
[2024-07-21] MEDS: TRIAMCINOLONE ACET INJ 40 MG/ML VIAL IM (09:10)
[2024-07-21 09:26] LABS: HIV (1&2) Antibody Rapid Non-Reactive
[2024-07-21] MEDS: KETOROLAC INJ 30 MG/ML VIAL IVP ×2 (10:36→19:39)
[2024-07-21] MEDS: OXYTOCIN in NS 20 units 20 UNIT/1,000 ML BAG 125 UNIT IV ×2 (10:37→17:42)
[2024-07-21 11:25] LABS: Hepatitis B Surface Antigen Non Reactive (Non React)
--- NOTE | 2024-07-21 12:46 | ESOP_ITS ---
Operative Note - SPECIAL SKILLS OFFICER Procedure Date of procedure: 07/21/24 Procedure Performed: Repeat low-transverse section Indication: The patient is a 34-year-old -0-1-3 history of x 3 in the past who presents for scheduled elective repeat section with tubal ligation. is being performed at 37-5/7 weeks secondary to cholestasis, AMA, history of x 3. On presentation the patient was also regularly ariadna. Pre-Op diagnosis: 1. IUP 37-5/7 weeks 2. Previous x 3 3. Probable maternal cholestasis 4. AMA 5. Multiparity, desires permanent sterilization Post-Op diagnosis: same Anesthesia type: Spinal Procedure description: After obtaining informed consent, the patient was brought back to the operating room and spinal anesthesia administered. She was then prepped and draped in the dorsal supine position with a leftward tilt in the normal sterile fashion. A Haro catheter was inserted the patient's bladder. The patient was given 2 g of Ancef by anesthesia. A Pfannenstiel skin incision was made through patient's prior scar and carried down to the underlying fascia. The fascia was incised in midline and the fascial incision extended laterally using Abbasi scissors. The superior aspect of the fascia was grasped with Jero clamps and the other underlying rectus muscles dissected off using a scalpel. This was repeated in the inferior aspect the incision. The rectus muscles were the midline and the peritoneal cavity entered sharply with a scalpel. This was extended superiorly and inferiorly with good visualization of the bladder. The bladder blade was inserted and the uterus was incised in a transverse fashion above the bladder reflection using a scalpel. The uterine incision was extended lateral using blunt dissection with the surgeon's fingers. The bag dwyer ruptured and clear fluid was noted. The bladder blade was removed and the was delivered atraumatically. The cord was clamped and cut and the was handed off to the waiting pediatric staff. Cord blood was collected. Cord gases were saved. The placenta was then manually removed and the uterus was exteriorized and cleared of all clots and debris. The uterine incision was repaired with 0 Monocryl in a running locked fashion. A couple of [id number] sutures of 2-0 chromic were used to obtain excellent hemostasis. The uterus was returned to the patient's abdominal cavity and copious irrig ation carried out with warm normal saline. The uterine incision was reexamined noted be hemostatic. After assuring the patient still desired permanent sterilization, the uterus was tilted well in situ the left fallopian tube was identified ,followed out to its fimbriated end and elevated with 2 [place] clamps. The fallopian tube was then ligated using 2 free ties of 0 plain. The intervening tubal segment was transected and handed off the operative field and a near-total portion of that fallopian tube was handed off the operating field. The same procedure was repeated in the opposite side and the opposite fallopian tube identified and followed out to its fimbriated end. The opposite fallopian tube was elevated using 2 [place] clamps ,ligated and transected in a similar fashion. A near total portion of the right fallopian tube was handed off the operating field. Both tubal transection sites were reexamined and noted be hemostatic. The uterine incision was reexamined and noted be hemostatic , some hemostatic powder was placed to obtain excellent hemostasis. After ensuring the rectus muscles were hemostatic , these were reapproximated in the midline using a running suture of 0 Monocryl. The fascia was closed with 0 Vicryl in a running fashion .The subcutaneous tissues were irrigated and found to be hemostatic. These were reapproximated using a running suture of 2-0 plain. The skin was closed with a subcuticular suture of 4-0 Monocryl. The patient tolerated the procedure well. Sponge, lap, instrument, and needle count were correct x 2. The patient went to the recovery area awake and in stable condition. Pathology was segments of bilateral fallopian tubes. Fluids: crystalloid Fluid amount (mL): 2,000 Urine output (mL): 200 Specimen: left tube and right tube Implants: none Estimated blood loss (ml): 400 Findings: Liveborn female in the MAMIE presentation with a loose nuchal cord x 1 and a body cord x 1 no meconium. Apgars were 8 and 9 weight was 6 pounds 1 ounce the placenta was complete spontaneous grossly normal ,tubes uterus and ovaries appeared grossly normal. There was scar tissue involving the abdominal muscles and the fascia but once in the peritoneal cavity, the pelvis was largely free of adhesions. Thin lower uterine segment. Complications: none Surgical staff Operation Date: 07/21/24 07:45 Case Staff DIAGNOSTICS SALES DEVELOPER: Dez Robertson RN First Assistant: Mark Bass Diagnosis Discharge Diagnosis (1) Supervision of high risk in third trimester: Status: Acute (2) Cholestasis during in third trimester: Status: Acute (3) Multiparity: Status: Acute (4) Previous section: Status: Acute (5) AMA (advanced maternal age) multigravida 35+: Status: Acute Problem List Completed Was Problem List Reviewed/Reconciled?: Yes (5) AMA (advanced maternal age) multigravida 35+ Qualifiers: Trimester: third trimester Qualified Code(s): O09.523 - Supervision of elderly multigravida, third trimester
[2024-07-21 15:38] LABS: Chlamydia trachomatis PCR Negative (Not Detect); Neisseria Gonorrhoeae DNA PCR Negative (Not Detect); Trichomonas Negative (Negative)
[2024-07-22] MEDS: ACETAMINOPHEN 325 MG TABLET 650 MG PO ×2 (00:47→06:36)
[2024-07-22] MEDS: Milk Of Magnesia Susp 30 ML UDC PO ×3 (00:47→14:01)
[2024-07-22 00:51] VITALS: BP 116/66; PULSE 96; RESP 18; TEMP 36.9
[2024-07-22] MEDS: KETOROLAC INJ 30 MG/ML VIAL IVP ×2 (01:17→06:38)
[2024-07-22 04:52] VITALS: BP 116/80; PULSE 100; RESP 18; TEMP 36.6
[2024-07-22 05:47] LABS: Basophils % (Auto) 0 % (0-2.5); Eosinophils % (Auto) 0 % (0-10); Hematocrit 25.6 % (36.0-46.0); Hemoglobin 8.9 g/dL (12.0-16.0); Immature Granulocytes % (Auto) 0 % (0-0); Immature Granulocytes Auto 0.05 Thou/mm3 (0.00-0.00); Lymphocytes # (Auto) 2.2 Thou/mm3 (1.0-4.8); Lymphocytes % (Auto) 13 % (10-50); Mean Corpuscular HGB Conc 34.8 g/dl (31.0-37.0); Mean Corpuscular Hemoglobin 30.5 pg (25.0-35.0); Mean Corpuscular Volume 88 fL (80-100); Monocytes # (Auto) 1.5 Thou/mm3 (0.0-0.8); Monocytes % (Auto) 9 % (0-12); Neutrophils # (Auto) 13.3 Thou/mm3 (1.8-7.7); Neutrophils % (Auto) 78 % (37-80); Nucleated Red Blood Cell % 0 /100 WBC (0); Platelet Count 279 Thou/mm3 (140-440); RDW Standard Deviation 41.9 fL (36.4-46.3); Red Blood Count 2.92 Miln/mm3 (4.00-5.20); White Blood Count 17.1 Thou/mm3 (3.6-11.0)
[2024-07-22] MEDS: SIMETHICONE 80 MG CHEW PO ×2 (06:38→14:01)
[2024-07-22 07:37] VITALS: BP 123/89; PULSE 98; RESP 16; TEMP 36.7
--- NOTE | 2024-07-22 08:15 | PC.LAC ---
Nurse asked me to follow up with mom because she was not doing much and baby's blood sugars were borderline. Mom did ask and get formula for a bottle feed this am. Mom stated that when they were visited by manager case that he stated it was probably better to do formula at this time since baby was not very often. Parents felt this was best choice at this time. Explained difference between colostrum and formula and babys belly size. explained stimulation to encourage milk supply, mom understood and was fine with only formula now. She is wanting to go home today and will work on breatfeeding there.
--- NOTE | 2024-07-22 09:40 | PC.SS ---
SKID MACHINE OPERATOR conducted bedside contact with the patient to address nursing referral indicating patient was late to care 25 weeks.? SKID MACHINE OPERATOR introduced self and role.? At bedside with patient was FOB, Zaheer Michele.? Patient gave permission for FOB to be present during discussion.? Patient informed SKID MACHINE OPERATOR that OB services conducted in [place] with [facility].? Patient stated scheduling delivery at [place] in order to have Dr. Little deliver infant; since Dr. Little had delivered the patient?s previous children.? Patient relayed accessing OB services during .? , Scott Egan; is the patient?s 4th child.? Other children are ages 14, 12, 2.? delivered via .? Patient plans on combo feeding the infant.? Patient denies history of mental health.? Patient is not receiving TANF, SNAP or WIC.? Patient plans on applying for WIC.? Patient denies history of alcohol/drug use.? Patient denies episodes of domestic violence. ?Patient denies history of CWS intervention.? Patient has access to appropriate supplies and equipment.? FOB will provide transportation upon discharge.? Patient describes possessing support system consisting of FOB, and extended family.? No further intervention required at this time, renal social worker will be available to address any further concerns.? SKID MACHINE OPERATOR updated bedside nurse.?
--- NOTE | 2024-07-22 10:56 | ESDS_ITS ---
DS: Providers Provider Date of admission: 07/21/24 05:00 Primary care physician: Physician No Primary/Family Admitting Provider: Nadege Little MD ([facility]) Attending Provider on Admission: Nadege Little MD ([facility]) Consults: 07/21/24 10:04 Referral Routine Comment: Attending Provider on DC: Mary Robertson MD Discharging Provider: Mary Robertson MD DS: Diagnosis Discharge Diagnosis (1) delivery delivered: Status: Acute (2) Previous section: Status: Acute (3) Cholestasis during in third trimester: Status: Acute (4) AMA (advanced maternal age) multigravida 35+: Status: Acute Problem List Completed Was Problem List Reviewed/Reconciled?: Yes Summary/Hosp Course Brief History: Patient is a 34-year-old -0-1-3 all care started in [facility] in [place] transferred to Dr Little at 25 weeks. She presents for scheduled elective repeat section #4 at 37-5/7 weeks. This is being done early for advanced maternal age and suspected cholestasis. Patient's cholestasis labs are still pending. They were drawn 10 days ago. Patient still reports itching. She denies contractions loss of fluids or bleeding. She has signed tubal ligation papers and has them with her. Patient underwent uncomplicated section and is doing well on POD 1. She has had an uncomplicated post-operative course, meeting all milestones and strongly desires discharge home. She is ambulating without lightheadedness, tolerating regular diet no n/v, spontaneously voiding without issue. Passing flatus. She has no chest pain or shortness of breath. No fevers or chills. Pain well controlled. Vitals normal, benign exam. Hemodynamically stable with no evidence of infection. Post-op Hgb 8.9 from 11.1. Peripartum Data Delivery Method: Low Transverse Episiotomy Description: None Procedures: Procedures Operation Date: 07/21/24 07:45 Actual Procedure Side Surgeon p w/tubal OB Nadege Little ([facility] Clinic)MD Status at Discharge Functional status at discharge: independent ambulation Overall status at discharge: patient is back to baseline Time Spent with Patient Time attestation: Total time spent providing and/or coordinating discharge services: Exam Vital Signs Temp Pulse Resp BP Pulse Ox O2 Del Method 98.1 F 98 16 123/89 H 98 Room Air 07/22/24 07:37 07/22/24 07:37 07/22/24 07:37 07/22/24 07:37 07/21/24 15:49 07/22/24 07:37 Narrative Exam General: well developed, well nourished, no acute distress, conversant Cardiac: normal heart rate Lungs: breathing without distress Abdomen: soft, post-gravid, appropriately tender to palpation, mild distention, no rebound or guarding, over-bandage removed, pfannenstiel incision covered by dry/clean/intact prineo bandage. Incision well reapproximated. No erythema, drainage or induration. Fundus firm at u-2cm. Extremities: no pain with palpation of calves, trace edema of BLE Discharge Plan Plan Patient Disposition: HOME (Self Care) Patient condition on transfer: Stable Prescriptions/Referrals Prescriptions/Med Rec: New hydrocodone-acetaminophen 5-325 mg Tablet 1 tab PO Q6H MDD 4 tablets PRN (Reason: Patient rated pain 7 to 8) 10 Days Qty: 20 0RF ibuprofen 800 mg tablet 800 mg PO Q8H PRN (Reason: pain) Qty: 30 0RF polyethylene glycol 3350 17 gram powder in packet 17 g PO QDAY Qty: 14 0RF ferrous sulfate 325 mg (65 mg iron) tablet 325 mg PO QDAY Qty: 30 0RF omeprazole 40 mg capsule,delayed release(DR/EC) 40 mg PO QDAY Qty: 30 0RF No Action One A Day Women's DHA 28 mg iron- 800 mcg combo pack PO Referrals: No Primary/Family,Physician [Primary Care Provider] - Patient/Caregiver Discharge Instructions Discharge Activity: activity as tolerated and other Other Discharge Activity Instructions:: vaginal rest and no heavy lifting more than 10 pounds for 6 weeks[address] while taking narcotic. keep incision clean and dry, do not submerge Other Discharge Diet Instructions: regular Education Materials: C Section Dc Print Language: Portuguese Activity Restrictions/Additional Instructions: follow up with Dr. Little in 1 week for incision check Stand Alone Forms: Jeanna Award Info., Patient Portal Info Letter Discharge Order Discharge Orders: Discharge (Routine); Ordered 07/22/24 Ordered By: Mary Robertson Planned Discharge Date 07/22/24 (4) AMA (advanced maternal age) multigravida 35+ Qualifiers: Trimester: third trimester Qualified Code(s): O09.523 - Supervision of elderly multigravida, third trimester
[2024-07-22] MEDS: HYDROcodone/APAP 5/325 TABLET 1 TAB PO (11:38)
[2024-07-22] MEDS: DOCUSATE SOD 100 MG CAPSULE PO (11:39)
== END 2024-07-22 15:21 | disposition home or self-care (01) | DRG 784 ==
LOC: S4SX 06:12 → S4NX 07:39
PROVIDERS: Admitting Provider Obstetrics & Gynecology; Visit Provider Obstetrics & Gynecology
PROC: 0UL70ZZ Occlusion of Bilateral Fallopian Tubes, Open Approach (ICD-10-PCS; CPT 59514; principal; 2024-07-21 07:30)
DX: O34.211 Maternal care for low transverse scar from previous cesarean delivery (principal); O26.643 Intrahepatic cholestasis of pregnancy, third trimester; Q21.0 Ventricular septal defect; O69.81X0 Labor and delivery complicated by cord around neck, without compression, not applicable or unspecified; O69.82X0 Labor and delivery complicated by other cord entanglement, without compression, not applicable or unspecified; Z30.2 Encounter for sterilization; Z37.0 Single live birth; Z3A.37 37 weeks gestation of pregnancy
CPT/HCPCS: 36415; 59409; 80307; 85025; 86703; 86762; 86780; 86850; 86900; 86901; 86923; 87340; 87491; 87591; 87661; 94762; A4649; J0689; J1885; J2274; J2371; J2405; J2590; J2765; J3010; J3301; J3490; J7120; A9270; J2270

== ENCOUNTER 2024-08-13 10:46 | Outpatient (AMB) | payer BC, SELFPAY ==
[2024-08-13 11:01] VITALS: BP 123/86; PULSE 85; RESP 19; TEMP 36.4; O2SAT 98
--- NOTE | 2024-08-13 11:01 | AMBOBPPN_ITS ---
Vital Signs 08/13/24 11:01 Weight 69.456 kg Weight Measurement Method Standing Scale BP 123/86 H Blood Pressure Source Automatic Cuff Blood Pressure Location Right Upper Arm Position Sitting Respiration 19 Pulse 85 Pulse Source Monitor Temp 97.5 F Temp Source Temporal Artery Scan Pulse Oximetry (%) 98 Oxygen Delivery Method Room Air Allergies/Home Meds Allergies & Medications Allergies No Known Allergies Allergy (Verified 07/21/24 06:38) Intake Visit Data Collection New Patient or Established: Established Patient (seen at [facility] within 3 years) Reason for Visit:: POST OP Balance Wheel Motion Inspector Required: No Do You Feel Safe at Home: Yes Authorities Contacted: N/A PCP or OBGYN visit in last 3 months: Yes Date of Last PCP or OBGYN visit: 07/22/24 Hx Now: No Are you currently on any form of Control: No Pain Present Currently: No Smoking Status Smoking Status: Current every day smoker Cessation Counseling Provided: CYN was advised that quitting smoking is the single most important factor to protect the health of themselves and their family. Discussed the benefits of quitting smoking with patient. Encouraged patient to quit smoking and provided Cessation assistance materials and resources. Tobacco Use: Vapor Cigarette Years smoked: 10 Are you interested in Quitting?: No BIT TAPPER: Past Medical History Past Medical History: No Hx Neurological Disorders, No Hx Hypothyroidism, No Hx Hyperthyroidism, No Hx Breast Cancer, No Hx Cardiac Disorders, No Hx Hypertension, No Hx Cancer, No Hx Blood Disorders, No Hx Anemia, Yes Hx Gastrointestinal Disorders (H PYLORI 2008, CHOLESTASIS), No Hx Renal Disease, No Hx Deep Vein Thrombosis, No Hx Diabetes Mellitus Type 1, No Hx Diabetes Mellitus Type 2 and No Hx Polycystic Ovarian Syndrome Questionnaires Social History Living Situation History Lives With: Family Housing: House Housing Other:: 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 [employer] Tobacco History Smoking Status: Current every day smoker Packs per Day: 0.5 Pack-Years: 20 tobacco type: cigarettes Number of Cigars Per Week: 10 Second Hand Smoke Exposure: Yes Alcohol History Alcohol Intake: Never Alcohol Intake Frequency: holidays/special occasions only Substance Use History Substance Use: none Domestic Abuse History Do You Feel Safe at Home: Yes EPDS - PP Depression Screening [place] Pospartum Depression Screen I have been able to laugh and see the funny side of things: (0) As much as I always could I have looked forward with enjoyment to things: (0) As much as I ever did I have blamed myself unnecessarily when things went wrong: (3) Yes, most of the time I have been anxious or worried for no good reason: (0) No, not at all I have felt scared or panicky for no very good reason: (0) No, not at all Things have been getting on top of me: (0) No, I have been coping as well as ever I have been so unhappy that I have had difficulty sleeping: (0) No, not at all I have felt sad or miserable: (0) No, not at all I have been so unhappy that I have been crying: (0) No, never The thought of harming myself has occurred to me: (0) Never Care OB Visit Log OB Flowsheet Initial Weight: Not Recorded Date -?-?-?-?-?-?-?-?-?-?-?-?- EGA Weight BP Alb Glu CTX Pres Fundal ht FHR Mov Dilation Station Effacement Hx Notes Visit Note 05/02/24 -?-?-?-?-?-?-?-?-?-?-?-?- 25w 6d 74.843 kg 123/74 150 active 05/28/24 -?-?-?-?-?-?-?-?-?-?-?-?- 29w 4d 76.43 kg 115/75 30 145 active 06/11/24 -?-?-?-?-?-?-?-?-?-?-?-?- 31w 4d 76.771 kg 126/81 occasional 34 145 active 06/25/24 -?-?-?-?-?-?-?-?-?-?-?-?- 33w 4d 78.018 kg 115/76 frequent 35 150 active Patient having a lot of contractions at work. On her feet a lot. Works at the [employer]. She is almost 34 weeks with a history of x 3. We will take her off work on disability at this time. 07/11/24 -?-?-?-?-?-?-?-?-?-?-?-?- 35w 6d 78.925 kg 123/80 frequent 36 145 active Patient still having contractions. Itching all over. Ordered cholestasis labs. If they are positive we will move her up. Patient sleeps sitting up Tums milk of magnesia and Mylanta not effective. History of gastric ulcer. Protonix prescribed. 07/16/24 -?-?-?-?-?-?-?-?-?-?-?-?- 36w 4d 78.982 kg 123/76 frequent 37 153 active Still itchy Cholestasis labs pending. +FM, -VB or LOF ANI Calculator Estimated Delivery Date Method Current WG Current Estimate 08/09/24 LMP (Certain) 41w 3d Expected Delivery Route/Plan Repeat with tubal ligation scheduled 07/29/2024 between 38 and 9 weeks for history of a thin lower uterine segment with a window, scar tissue, history of gestational diabetes and AMA. Patient also lives an hour away from the hospital. This will also be #4. Specific Issue/Plans Needs colpo LEEP . Notes Visit Date: 07/16/24 Last Updated by: Nadege Little ([facility])MD To OBT for NST. CS moved up to 0730 on 07/21/24 for repeat x 4, cholestasis, AMA. Desires BTL Visit Date: 07/11/24 Last Updated by: Nadege Little ([facility])MD Patient has a lot of itching, cholestasis labs ordered. NST next week. May need to move ultrasound up to 37 weeks if she is positive for cholestasis. Visit Date: 06/25/24 Last Updated by: Nadege Little ([facility] Clinic)MD Patient has a lot of contractions at work. She is 33-4/7 weeks with an EDC of 08/07/2024. She has a repeat scheduled 07/29/2024 for a thin lower uterine segment and a history of x 3. Visit Date: 06/11/24 Last Updated by: Nadege Little (OB Clinic)MD Patient reports good movement. Some irregular contractions. She works at the [employer] and can sit at some times. She is seeing the maternal- medicine provider next week for her last ultrasound. The baby had 3 VDs now down to one now. Scheduled repeat CS with BTL for 07/29/24 Visit Date: 05/28/24 Last Updated by: Nadege Little (OB Clinic)MD Patient reports good movement, no bleeding. She is working at [employer]. She does desire tubal ligation and signed tubal papers today. She reminds me she had a thin lower uterine segment last time with scar tissue present. Plan is to perform between 38 and 39 weeks. Will schedule 07/29/2024. Patient still needs a colpo and LEEP for an ASCUS H Pap. She is seeing the high risk physician in [place], Dr. Vaughn, and the baby only has 1 VSD now. She has a follow-up appointment with him in mid June. Visit Date: 05/02/24 Last Updated by: Nadege Little MD [facility] records reviewed. Pt with ASC-H pap in 01/26. Dr Chu aware. No colpo done. Unclear why. Pt needs a CS and wants a BTL. Needs a Colpo/probable LEEP post . Baby with [address] Plata in [place]. Passed GCT, NIPT WNL HPI Interval History: Pt is a 34 y/o G5 now P4014 who underwent a repeat CS with BTL on 07/21/24 at 37 5/7 weeks for aMA, previous CS x 3 and suspected cholestasis. She went home POD #1 and is doing wee. No heavy VB or fevers/chills. She is breast and bottle feeding. Was or delivery considered high risk: Yes Delivery type: Was labor induced: no Gestational age at delivery (weeks): 37.5 Delivery date: 07/21/24 Delivering provider: Dr Tabby Little Delivery complications: No Is patient : Yes Is patient sexually active: No Contraception planned: Had BTL Exam General Limitations: no limitations General Appearance: alert, in no apparent distress, comfortable, cooperative, healthy appearing and well groomed Abdominal Abdominal exam: Present soft and incision (Incision C/D/I no erythema or induration. Fundus firm and non tender) Office Procedures OB Clinic LOC & Office Proc's Nursing/Assessment Patient Status: Established Patient OB Clinic Nursing Assessment: BP Monitoring, Medication Reconciliation, Update PMH in EMR and Vital Signs OB Clinic Coordination of Care: Complex Care and Chronic Disease 1-5, Consent,records obtained, informed consent, Lab and Imaging orders and Results/Orders obtained Miscellaneous Interventions: Skin/Strips adhesive Established Patient Charge Established Patient Point Assignment: 105 Post Follow-up Visit Post Follow up Visit: Yes Assessment & Plan Diagnosis / Problem List (1) delivery delivered: Status: Acute Assessment and Plan: Doing well post .Post op instructions given (2) Multiparity: Status: Acute Assessment and Plan: S/P BTL (3) Pap smear cannot exclude high grade squamous intraepithelial lesion (ASC-H): Status: Acute Assessment and Plan: Needs colpo/LEEP post . Will refer out if we cannot do here at our clinic. Care Reviewed delivery summary and any complications: Yes Uterus involuted to: 12 week size Perineal / incision healing noted: Yes Screened for depression: Yes Depression counseling provided: No Discussed family planning & contraception: No Contraception planned: Had BTL Counseling on safe resumption of sexual activity: No Counseling on gradual excercise: Yes Discussed and concerns (describe), provided support: Yes Referred to undercar specialist: No Counseled on good nutrition, hydration, and self care: Yes Reviewed vaccine status: No Chronic & current problems reconciled on problem list: Yes Additional follow up plans: follow up in 3-4 weeks care discussed; questions answered: feeding Follow up: other (follow up in 3-4 weeks)
== END 2024-08-13 11:28 | disposition home or self-care (01) ==
LOC: HODSOBC 10:46
PROVIDERS: PCP Obstetrics & Gynecology; Referring Provider Obstetrics & Gynecology; Supervising Provider Obstetrics & Gynecology; Visit Provider Obstetrics & Gynecology
DX: Z39.2 Encounter for routine postpartum follow-up (principal); Z39.1 Encounter for care and examination of lactating mother; O99.335 Smoking (tobacco) complicating the puerperium; F17.210 Nicotine dependence, cigarettes, uncomplicated; Z71.6 Tobacco abuse counseling; Z98.51 Tubal ligation status
CPT/HCPCS: 99213; G0463

== ENCOUNTER 2024-10-20 14:30 | Outpatient (AMB) | payer BC, OTHER, SELFPAY ==
[2024-10-20 14:36] VITALS: BP 117/81; PULSE 89; RESP 16; TEMP 36.6; O2SAT 98; BMI 32.3
--- NOTE | 2024-10-20 14:36 | AMBOBPPN_ITS ---
Vital Signs 10/20/24 14:36 Height 1.5 m Height Method Stated Weight 72.802 kg Weight Measurement Method Standing Scale BMI 32.3 BP 117/81 Blood Pressure Source Manual Cuff- Auscultation Blood Pressure Location Right Lower Arm Position Sitting Respiration 16 Pulse 89 Pulse Source Monitor Temp 97.9 F Temp Source Oral Pulse Oximetry (%) 98 Oxygen Delivery Method Room Air Allergies/Home Meds Allergies & Medications Allergies No Known Allergies Allergy (Verified 10/20/24 14:37) Medication Reconciliation vits 75-iron 28 mg-folic acid 800 mcg-omega-3 oral combo pack (One A Day Women's DHA) pkg PO 05/02/24 [History Confirmed 10/20/24] ferrous sulfate 325 mg (65 mg iron) tablet 325 mg PO QDAY #30 tabs 07/22/24 [Rx Confirmed 10/20/24] omeprazole 40 mg capsule,delayed release 40 mg PO QDAY #30 caps 07/22/24 [Rx Confirmed 10/20/24] polyethylene glycol 3350 17 gram oral powder packet 17 g PO QDAY #14 ea 07/22/24 [Rx Confirmed 10/20/24] Intake Visit Data Collection New Patient or Established: Established Patient (seen at [facility] within 3 years) Reason for Visit:: Seen by Clinical Staff ONLY (RN/MA): No 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 Discussed the benefits of quitting smoking with patient. Encouraged patient to quit smoking and provided Cessation assistance materials and resources. 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 Medical History Past Medical History: No Hx Neurological Disorders, No Hx Hypothyroidism, No Hx Hyperthyroidism, No Hx Breast Cancer, No Hx Cardiac Disorders, No Hx Hypertension, No Hx Cancer, No Hx Blood Disorders, No Hx Anemia, Yes Hx Gastrointestinal Disorders (H PYLORI 2008, CHOLESTASIS), No Hx Renal Disease, No Hx Deep Vein Thrombosis, No Hx Diabetes Mellitus Type 1, No Hx Diabetes Mellitus Type 2 and No Hx Polycystic Ovarian Syndrome Questionnaires Covid-19 Vaccine Questionnaire Has patient been vacinated for Covid-19 Have you been vacinated for Covid-19: Yes Social History Living Situation History Lives With: Family Housing: House Housing 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:: 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 [employer] Tobacco History Smoking Status: Current every day smoker Packs per Day: 0.5 Pack-Years: 20 tobacco type: cigarettes Number of Cigars Per Week: 10 Second Hand Smoke Exposure: Yes Alcohol History Alcohol Intake: Never Alcohol Intake Frequency: holidays/special occasions only Substance Use History Substance Use: none Domestic Abuse History Do You Feel Safe at Home: Yes EPDS - PP Depression Screening [place] Pospartum Depression Screen I have been able to laugh and see the funny side of things: (0) As much as I always could I have looked forward with enjoyment to things: (0) As much as I ever did I have blamed myself unnecessarily when things went wrong: (0) No, never I have been anxious or worried for no good reason: (0) No, not at all I have felt scared or panicky for no very good reason: (0) No, not at all Things have been getting on top of me: (0) No, I have been coping as well as ever I have been so unhappy that I have had difficulty sleeping: (0) No, not at all I have felt sad or miserable: (0) No, not at all I have been so unhappy that I have been crying: (0) No, never The thought of harming myself has occurred to me: (0) Never Total Score: EPDS Score: Referral is indicated for score of 9 or more, suicidal, or if provider believes patient is depressed regardless of score.: 0 EPDS completed yes Care OB Visit Log OB Flowsheet Initial Weight: Not Recorded Date -?-?-?-?-?-?-?-?-?-?-?-?- EGA Weight BP Alb Glu CTX Pres Fundal ht FHR Mov Dilation Station Effacement Hx Notes Visit Note 05/02/24 -?-?-?-?-?-?-?-?-?-?-?-?- 25w 6d 74.843 kg 123/74 150 active 05/28/24 -?-?-?-?-?-?-?-?-?-?-?-?- 29w 4d 76.43 kg 115/75 30 145 active 06/11/24 -?-?-?-?-?-?-?-?-?-?-?-?- 31w 4d 76.771 kg 126/81 occasional 34 145 active 06/25/24 -?-?-?-?-?-?-?-?-?-?-?-?- 33w 4d 78.018 kg 115/76 frequent 35 150 active Patient having a lot of contractions at work. On her feet a lot. Works at the [employer]. She is almost 34 weeks with a history of x 3. We will take her off work on disability at this time. 07/11/24 -?-?-?-?-?-?-?-?-?-?-?-?- 35w 6d 78.925 kg 123/80 frequent 36 145 active Patient still having contractions. Itching all over. Ordered cholestasis labs. If they are positive we will move her up. Patient sleeps sitting up Tums milk of magnesia and Mylanta not effective. History of gastric ulcer. Protonix prescribed. 07/16/24 -?-?-?-?-?-?-?-?-?-?-?-?- 36w 4d 78.982 kg 123/76 frequent 37 153 active Still itchy Cholestasis labs pending. +FM, -VB or LOF ANI Calculator Estimated Delivery Date Method Current WG Current Estimate 08/09/24 LMP (Certain) 50w 4d Expected Delivery Route/Plan Repeat with tubal ligation scheduled 07/29/2024 between 38 and 9 weeks for history of a thin lower uterine segment with a window, scar tissue, history of gestational diabetes and AMA. Patient also lives an hour away from the [facility]. This will also be #4. Specific Issue/Plans Needs colpo LEEP . Notes Visit Date: 07/16/24 Last Updated by: Nadege Little (OB Clinic)MD To OBT for NST. CS moved up to 0730 on 07/21/24 for repeat x 4, cholestasis, AMA. Desires BTL Visit Date: 07/11/24 Last Updated by: Nadege Little (OB Clinic)MD Patient has a lot of itching, cholestasis labs ordered. NST next week. May need to move ultrasound up to 37 weeks if she is positive for cholestasis. Visit Date: 06/25/24 Last Updated by: Nadege Little (OB Clinic)MD Patient has a lot of contractions at work. She is 33-4/7 weeks with an EDC of 08/07/2024. She has a repeat scheduled 07/29/2024 for a thin lower uterine segment and a history of x 3. Visit Date: 06/11/24 Last Updated by: Nadege Little (OB Clinic)MD Patient reports good movement. Some irregular contractions. She works at the [employer] and can sit at some times. She is seeing the maternal- medicine provider next week for her last ultrasound. The baby had 3 VDs now down to one now. Scheduled repeat CS with BTL for 07/29/24 Visit Date: 05/28/24 Last Updated by: Nadege Little (OB Clinic)MD Patient reports good movement, no bleeding. She is working at [employer]. She does desire tubal ligation and signed tubal papers today. She reminds me she had a thin lower uterine segment last time with scar tissue present. Plan is to perform between 38 and 39 weeks. Will schedule 07/29/2024. Patient still needs a colpo and LEEP for an ASCUS H Pap. She is seeing the high risk physician in [place], Dr. Vaughn, and the baby only has 1 VSD now. She has a follow-up appointment with him in mid June. Visit Date: 05/02/24 Last Updated by: Nadege Little MD ALL C records reviewed. Pt with ASC-H pap in 01/26. Dr Chu aware. No colpo done. Unclear why. Pt needs a CS and wants a BTL. Needs a Colpo/probable LEEP post . Baby with [address] Plata in [place]. Passed GCT, NIPT WNL HPI Interval History: Patient is a 34-year-old now -0-1-4 status post repeat #4 and tubal ligation 07/21/2024. I performed her surgery. It was uncomplicated. Patient actually went home postoperative day #1. Today she is present with her 13-year-old daughter. She states the baby is good she is exclusively bottle feeding. She reminds me that she has a high grade Pap and needed a LEEP. She also has heavier cycles and would like to hear about an ablation. She skipped a cycle was nervous today that she could somehow be even though we did a tubal ligation her test is negative in the office. She states she usually sinks up with her daughter's cycles so she was surprised when she missed one. 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 No pain. No redness around her incision. No foul discharge. Exam Narrative Physical exam: Abdomen soft, nontender, incision clean dry and intact. Extremities show no cyanosis clubbing or edema General Limitations: no limitations General Appearance: alert, in no apparent distress, comfortable, cooperative, healthy appearing and well groomed Office Procedures OB Clinic LOC & Office Proc's Nursing/Assessment Patient Status: Established Patient OB Clinic Nursing Assessment: Medication Reconciliation, Update PMH in EMR and Vital Signs OB Clinic Coordination of Care: Complex Care and Chronic Disease 1-5, Consent,records obtained, informed consent, Education Simp Pt/Fam, Lab and Imaging orders, Results/Orders obtained and Staff clarify orders Established Patient Charge Established Patient Point Assignment: 105 Post Follow-up Visit Post Follow up Visit: Yes Assessment & Plan Diagnosis / Problem List (1) Routine Follow-Up: Plan: Patient is doing well . No signs of post depression. (2) delivery delivered: Status: Acute Plan: Patient can go back to all normal activities including heavy lifting intercourse tampons douching and swimming (3) Multiparity: Status: Acute Plan: Patient had a tubal ligation during . test is negative today. (4) Pap smear cannot exclude high grade squamous intraepithelial lesion (ASC-H): Status: Acute Plan: Patient needs a LEEP scheduled in the OR (5) DUB (dysfunctional uterine bleeding): Status: Acute Plan: Will call and authorize for hysteroscopy D&C NovaSure endometrial ablation. Care Reviewed delivery summary and any complications: Yes Perineal / incision healing noted: Yes Screened for depression: Yes Depression counseling provided: No Discussed family planning & contraception: No Contraception planned: Patient had a tubal ligation with her Counseling on safe resumption of sexual activity: Yes Counseling on gradual excercise: Yes Discussed and concerns (describe), provided support: No Referred to surgical training specialist: No Counseled on good nutrition, hydration, and self care: Yes Reviewed vaccine status: No Chronic & current problems reconciled on problem list: Yes Additional follow up plans: Pelvic ultrasound, authorized for LEEP, hysteroscopy, D&C, NovaSure ablation in the OR care discussed; questions answered: feeding and sleep Follow up: routine/prn (FP) Tobacco Smoking Status: Current every day smoker
== END 2024-10-20 15:50 | disposition home or self-care (01) ==
LOC: HODSOBC 14:30
PROVIDERS: Supervising Provider Obstetrics & Gynecology; Visit Provider Obstetrics & Gynecology
DX: Z39.2 Encounter for routine postpartum follow-up (principal); N93.8 Other specified abnormal uterine and vaginal bleeding; F17.210 Nicotine dependence, cigarettes, uncomplicated; Z71.6 Tobacco abuse counseling; Z98.51 Tubal ligation status
CPT/HCPCS: Z1038

== ENCOUNTER 2025-01-19 14:16 | Outpatient (AMB) | payer BC, OTHER, SELFPAY ==
[2025-01-19 14:27] VITALS: BP 99/64; PULSE 74; RESP 18; TEMP 36.2; O2SAT 97; BMI 33.6
--- NOTE | 2025-01-19 14:27 | AMB.GYNCLNOT ---
Vital Signs 01/19/25 14:27 Height 1.5 m Height Method Stated Weight 75.75 kg Weight Measurement Method Standing Scale BMI 33.6 BP 99/64 Blood Pressure Source Automatic Cuff Blood Pressure Location Right Upper Arm Position Sitting Respiration 18 Pulse 74 Pulse Source Monitor Temp 97.1 F Temp Source Temporal Artery Scan Pulse Oximetry (%) 97 Oxygen Delivery Method Room Air Allergies/Home Meds Allergies & Medications Allergies No Known Allergies Allergy (Verified 01/19/25 14:29) Medication Reconciliation hydrocodone 5 mg-acetaminophen 325 mg tablet 1 tab PO Q6H PRN pain #20 tabs 01/19/25 [Rx] ketorolac 10 mg tablet 10 mg PO Q6H PRN pain 5 days #20 tabs 01/19/25 [Rx] Intake Visit Data Collection New Patient or Established: Established Patient (seen at [facility] within 3 years) Reason for Visit:: PRE-OP Seen by Clinical Staff ONLY (RN/MA): No Communications Technologist Required: No Do You Feel Safe at Home: Yes Authorities Contacted: N/A PCP or OBGYN visit in last 3 months: Yes Date of Last PCP or OBGYN visit: 10/20/24 Hx Now: No Are you currently on any form of Control: No Last menstrual period: 01/11/25 Pain Present Currently: No Pain Scale Used: Barbosa-Lopez/Numerical Pain scale:: 0 Smoking Status Smoking Status: Current every day smoker Cessation Counseling Provided: CYN was advised that quitting smoking is the single most important factor to protect the health of themselves and their family. Discussed the benefits of quitting smoking with patient. Encouraged patient to quit smoking and provided Cessation assistance materials and resources. 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 Questionnaires Covid-19 Vaccine Questionnaire Has patient been vacinated for Covid-19 Have you been vacinated for Covid-19: No PHQ-9 PHQ-2 Over the last 2 weeks, how often have you been bothered by any of the following problems? 1. Little interest or pleasure in doing things: not at all 2. Feeling down, depressed, or hopeless: not at all Total score: 0 PHQ-9 3. Trouble falling or staying asleep, or sleeping too much: Not at all 4. Feeling tired or having little energy: Not at all 5. Poor appetite or overeating: Not at all 6. Feeling bad about yourself - or that you are a failure or have let yourself or your family down: Not at all 7. Trouble concentrating on things, such as reading the newspaper or watching television: Not at all 8. Moving or speaking so slowly that other people could have noticed? - Or the opposite - being so fidgety or restless that you have been moving around a lot more than usual: not at all 9. Thoughts that you would be better off or of hurting yourself in some way: Not at all Total score: 0 If you checked off any problems, how difficult have these problems made it for you to do your work, take care of things at home, or get along with other people?: not difficult at all Source: Developed by Drs. Akin Mueller, Radha Pham, João Ventura and colleagues, with an educational karri from [employer]. 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 Patient has heavy cycles. She also needs a LEEP performed at the same time. The patient has had a ASCUS cannot rule out high-grade dysplasia Pap and needs a LEEP. Exam General Limitations: no limitations General Appearance: alert, cooperative and well groomed Chest Chest inspection: Present normal inspection and symmetric chest wall rise Resp Respiratory exam: Present normal lung sounds bilaterally Card Cardiovascular exam: Present regular rate, normal rhythm and normal heart sounds Abdominal Abdominal exam: Present soft and normal bowel sounds Extremities Extremities exam: Present normal inspection and full ROM Psych Psychiatric exam: Present normal affect and normal mood Skin Skin exam: Present warm, dry, intact and normal color Office Procedures OBC Clinic LOC & Office Proc's Nursing/Assessment Patient Status: Established Patient OB Clinic Nursing Assessment: Medication Reconciliation, Update PMH in EMR and Vital Signs OB Clinic Coordination of Care: Complex Care and Chronic Disease 1-5, Education Complex Pt/Fam, Consent,records obtained, informed consent, Lab and Imaging orders, Results/Orders obtained and Staff clarify orders Established Patient Charge Established Patient Point Assignment: 110 Established Patient Point Charge: EP Level 3 (80-115) Assessment & Plan Diagnosis / Problem List (1) DUB (dysfunctional uterine bleeding): Status: Acute Assessment and Plan: Patient is consented for hysteroscopy, dilation, curettage, NovaSure endometrial ablation. This is scheduled for 01/23/2025. (2) Pap smear cannot exclude high grade squamous intraepithelial lesion (ASC-H): Status: Acute Assessment and Plan: Patient is scheduled for a LEEP in the OR 01/23/2025. The risks of both procedures were discussed with patient in detail including the risk of bleeding, infection, blood transfusion, damage to bowel bladder blood vessels other organs if uterine perforation occurs further surgery if any complications occur. All questions were answered all consents will be signed the day of surgery but patient was verbally consented for all procedures and agrees to proceed. Post operative instructions were reviewed briefly including no intercourse for 1 month after surgery.
== END 2025-01-19 14:58 | disposition home or self-care (01) ==
LOC: HODSOBC 14:16
PROVIDERS: Supervising Provider Obstetrics & Gynecology; Visit Provider Obstetrics & Gynecology
DX: N93.8 Other specified abnormal uterine and vaginal bleeding (principal); R87.610 Atypical squamous cells of undetermined significance on cytologic smear of cervix (ASC-US); F17.210 Nicotine dependence, cigarettes, uncomplicated; Z71.6 Tobacco abuse counseling
CPT/HCPCS: 99213; G0463

== ENCOUNTER 2025-02-10 14:01 | Outpatient (AMB) | payer BC, OTHER, SELFPAY ==
[2025-02-10 14:09] VITALS: BP 128/84; PULSE 92; RESP 18; TEMP 36.3; O2SAT 98; BMI 34.5
--- NOTE | 2025-02-10 14:09 | GYNCLNT_ITS ---
Vital Signs 02/10/25 14:09 Height 1.5 m Height Method Stated Weight 77.734 kg Weight Measurement Method Standing Scale BMI 34.5 BP 128/84 Blood Pressure Source Automatic Cuff Blood Pressure Location Left Upper Arm Position Sitting Respiration 18 Pulse 92 Pulse Source Monitor Temp 97.3 F Temp Source Oral Pulse Oximetry (%) 98 Oxygen Delivery Method Room Air Allergies/Home Meds Allergies & Medications Allergies No Known Allergies Allergy (Verified 02/10/25 14:09) Medication Reconciliation hydrocodone 5 mg-acetaminophen 325 mg tablet 1 tab PO Q6H PRN pain #20 tabs 01/19/25 [Rx Confirmed 02/10/25] Intake Visit Data Collection New Patient or Established: Established Patient (seen at [facility] within 3 years) Reason for Visit:: POST OP Seen by Clinical Staff ONLY (RN/MA): No 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 Discussed the benefits of quitting smoking with patient. Encouraged patient to quit smoking and provided Cessation assistance materials and resources. 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 Past Medical History: No Hx Neurological Disorders, No Hx Hypothyroidism, No Hx Hyperthyroidism, No Hx Breast Cancer, No Hx Cardiac Disorders, No Hx Hypertension, No Hx Cancer, No Hx Blood Disorders, No Hx Anemia, Yes Hx Gastrointestinal Disorders (H PYLORI 2008), No Hx Renal Disease, No Hx Deep Vein Thrombosis, No Hx Diabetes Mellitus Type 1, No Hx Diabetes Mellitus Type 2 and No Hx Polycystic Ovarian Syndrome Questionnaires Covid-19 Vaccine Questionnaire Has patient been vacinated for Covid-19 Have you been vacinated for Covid-19: Yes PHQ-9 PHQ-2 Over the last 2 weeks, how often have you been bothered by any of the following problems? 1. Little interest or pleasure in doing things: not at all 2. Feeling down, depressed, or hopeless: not at all Total score: 0 PHQ-9 3. Trouble falling or staying asleep, or sleeping too much: Not at all 4. Feeling tired or having little energy: Not at all 5. Poor appetite or overeating: Not at all 6. Feeling bad about yourself - or that you are a failure or have let yourself or your family down: Not at all 7. Trouble concentrating on things, such as reading the newspaper or watching television: Not at all 8. Moving or speaking so slowly that other people could have noticed? - Or the opposite - being so fidgety or restless that you have been moving around a lot more than usual: not at all 9. Thoughts that you would be better off or of hurting yourself in some way: Not at all Total score: 0 Source: Developed by Drs. Akin Mueller, Radha Pham, João Ventura and colleagues, with an educational karri from [employer]. 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[employer] Tobacco History Smoking Status: Current every day smoker Packs per Day: 0.5 Pack-Years: 20 tobacco type: cigarettes Number of Cigars Per Week: 10 Second Hand Smoke Exposure: Yes Alcohol History Alcohol Intake: Current Alcohol Intake Frequency: holidays/special occasions only Substance Use History Substance Use: none Domestic Abuse History Do You Feel Safe at Home: Yes Office Procedures OBC Clinic LOC & Office Proc's Nursing/Assessment Patient Status: Established Patient OB Clinic Nursing Assessment: Medication Reconciliation, Update PMH in EMR and Vital Signs OB Clinic Coordination of Care: Complex Care and Chronic Disease 1-5, Consent,r ecords obtained, informed consent, Education Simp Pt/Fam, Results/Orders obtained and Staff clarify orders Established Patient Charge Established Patient Point Assignment: 90 Established Patient Point Charge: EP Level 3 (80-115)
== END 2025-02-10 15:46 | disposition home or self-care (01) ==
LOC: HODSOBC 14:01
PROVIDERS: Supervising Provider Obstetrics & Gynecology; Visit Provider Obstetrics & Gynecology
DX: Z48.816 Encounter for surgical aftercare following surgery on the genitourinary system (principal); Z71.6 Tobacco abuse counseling; F17.210 Nicotine dependence, cigarettes, uncomplicated
CPT/HCPCS: 99213; G0463